=== PATIENT | female | born 1965 | race Caucasian/White ===

== ENCOUNTER 2018-04-17 22:08 | Emergency (ER) | payer MEDICARE, OTHER ==
[~2018-04-17 22:08] MED LIST: Aspirin 81 MG Tab.Chew PO ONE
[2018-04-17] MEDS: Aspirin 81 MG Tab.Chew ONE (22:25)
[2018-04-17] MEDS ORDERED: Ondansetron 4 MG/2 ML SDV IVPUSH ONE (22:51)
--- NOTE | 2018-04-17 22:52 | EDM.PDOC ---
ED HPI GENERAL MEDICAL PROBLEM - General Stated Complaint: BLOOD PRESSURE PROBLEMS Time Seen by Provider: 04/17/18 22:32 Source of Information: Reports: Patient, Significant Other History Limitations: Reports: No Limitations, Intoxication (has had several drinks all day) - History of Present Illness INITIAL COMMENTS - FREE TEXT/NARRATIVE: Patient presents (brought by boyfriend) with report of palpitations and low blood pressure. She has had palpitations for the past couple days and it usually signals that her blood pressure is too high so tonight she checked her pressure and it was low so she came in to ER. She admits she doesn't drink very much water although has had quite a bit of alcohol today. She feels the pulsations at both ends of her sternum but it is less now than earlier. She denies any other chest pain or pressure. She has a little nausea. She also has Ocular Pharyngeal Muscular Dystrophy (OPMD). Upper Chest Pain Score (Numeric/FACES): 3 - Related Data Allergies Allergy/AdvReac Type Severity Reaction Status Date / Time Unable to Assess Allergy Verified 04/17/18 23:49 ED ROS GENERAL - Review of Systems Review Of Systems: See Below Constitutional: Denies: Fever, Chills, Weakness HEENT: Denies: Throat Pain, Vision Change Respiratory: Denies: Shortness of Breath, Cough Cardiovascular: Reports: Blood Pressure Problem, Palpitations. Denies: Chest Pain, Syncope GI/Abdominal: Reports: Nausea. Denies: Abdominal Pain, Vomiting : Denies: Dysuria, Flank Pain Musculoskeletal: Denies: Neck Pain, Shoulder Pain, Arm Pain, Back Pain, Hand Pain, Leg Pain, Foot Pain Skin: Denies: Cyanosis, Jaundice, Mottled, Pallor, Diaphoresis Neurological: Denies: Confusion, Dizziness, Headache, Seizure, Syncope, Difficulty Walking, Weakness, Change in Speech Psychiatric: Denies: Agitation, Anxiety, Confusion ED EXAM, GENERAL - Physical Exam Exam: See Below Exam Limited By: No Limitations General Appearance: Alert, WD/WN, No Apparent Distress Eye Exam: Bilateral Eye: EOMI, Normal Inspection, PERRL Ears: Normal External Exam, Hearing Grossly Normal Nose: Normal Inspection, No Blood Throat/Mouth: Normal Inspection, Normal Lips, Normal Voice, No Airway Compromise Head: Atraumatic, Normocephalic Neck: Normal Inspection, Supple, Non-Tender, Full Range of Motion. No: Carotid Bruit Respiratory/Chest: No Respiratory Distress, Lungs Clear, Normal Breath Sounds, No Accessory Muscle Use Cardiovascular: Normal Peripheral Pulses, Regular Rate, Rhythm, No Edema, No Gallop, No JVD, No Murmur GI/Abdominal: Normal Bowel Sounds, Soft, No Organomegaly, No Distention, Tender (mildly tender at mid-epigastrium). No: Distended, Guarding, Rigid Back Exam: Normal Inspection, Full Range of Motion. No: CVA Tenderness (L), CVA Tenderness (R) Extremities: Normal Inspection, Normal Range of Motion, Non-Tender, No Pedal Edema Neurological: Alert, Oriented, Normal Cognition, No Motor/Sensory Deficits Psychiatric: Normal Affect, Normal Mood Skin Exam: Warm, Dry, Intact, Normal Color, No Rash Course - Vital Signs Last Recorded V/S: Last Vital Signs Temp 97.4 F 04/17/18 22:52 Pulse 74 04/17/18 22:52 Resp 21 H 04/17/18 22:52 BP 86/50 L 04/17/18 22:52 Pulse Ox 98 04/17/18 22:52 - Orders/Labs/Meds Orders: Active Orders 24 hr Category Date Time Status EKG Documentation Completion [RC] ASDIRECTED Care 04/17/18 22:51 Ordered EKG 12 Lead [EK] Routine Ther 04/17/18 22:51 Ordered Labs: Laboratory Tests 04/17/18 04/17/18 Range/Units 23:38 23:38 WBC 6.35 (5.00-10.00) 10^3/uL RBC 3.46 L (3.80-5.50) 10^6/uL Hgb 12.8 (12.0-16.0) g/dL Hct 36.3 L (37.0-47.0) % MCV 104.9 H (82.0-92.0) fL MCH 37.0 H (27.0-31.0) pg MCHC 35.3 (32.0-36.0) g/dL RDW 14.5 (11.5-14.5) % Plt Count 167 (150-400) 10^3/uL MPV 10.0 (7.4-10.4) fL Immature Gran % (Auto) 0.5 (0.0-5.0) % Neut % (Auto) 36.4 L (50.0-70.0) % Lymph % (Auto) 55.6 H (20.0-40.0) % [place] % (Auto) 5.4 (2.0-8.0) % Eos % (Auto) 1.6 (1.0-3.0) % Baso % (Auto) 0.5 (0.0-1.0) % Immature Gran # (Auto) 0.03 (0.00-0.50) 10^3/uL Neut # (Auto) 2.32 L (2.50-7.00) 10^3/uL Lymph # (Auto) 3.53 (1.00-4.00) 10^3/uL [place] # (Auto) 0.34 (0.10-0.80) 10^3/uL Eos # (Auto) 0.10 (0.10-0.30) 10^3/uL Baso # (Auto) 0.03 (0.00-0.10) 10^3/uL Sodium 140 (136-145) mmol/L Potassium 3.1 L (3.3-5.3) mmol/L Chloride 102 (98-115) mmol/L Carbon Dioxide 24.9 (21.0-32.0) mmol/L Anion Gap 16.2 H (5-15) mmol/L BUN 7 (6-25) mg/dL Creatinine 0.71 (0.51-1.17) mg/dL Est Cr Clr Drug Dosing 76.93 mL/min Estimated GFR (MDRD) > 60 mL/min Glucose 94 (75 - 99) mg/dL Calcium 8.1 L (8.7-10.3) mg/dL Total Bilirubin 0.3 (0.2-1.0) mg/dL AST 110 H (15-37) U/L ALT 152 H (12-78) U/L Alkaline Phosphatase 54 (46-116) IU/L Troponin I < 0.04 (0.00-0.070) ng/mL Total Protein 5.8 L (6.4-8.2) g/dL Albumin 3.39 (3.00-4.80) g/dL Lipase 340 (73-393) U/L Meds: Medications Discontinued Medications Generic Name Dose Route Start Last Admin Trade Name Freq PRN Reason Stop Dose Admin Aspirin Confirm 04/17/18 22:23 04/17/18 22:25 Aspirin Administered 04/17/18 22:24 324 mg Dose Administration 324 mg .ROUTE .STK-MED ONE Sodium Chloride 1,000 mls @ 999 mls/hr 04/17/18 23:46 04/17/18 22:43 Normal Saline IV 04/18/18 00:46 999 mls/hr .BOLUS ONE Administration Sodium Chloride 1,000 mls @ 999 mls/hr 04/17/18 23:47 04/17/18 23:55 Normal Saline IV 04/18/18 00:47 999 mls/hr .BOLUS ONE Administration Ondansetron HCl 4 mg 04/17/18 22:51 04/17/18 23:49 Zofran IVPUSH 04/17/18 22:52 4 mg ONETIME ONE Administration - Re-Assessments/Exams Free Text/Narrative Re-Assessment/Exam: 04/17/18 23:37 Patient is feeling a little better, less of the palpitations in upper sternum. Lab is here now drawing. 04/18/18 00:59 EKG and Troponin are okay. Liver functions a little elevated. Discussed with patient this is likely related to her alcohol use which is daily she says. She moved here 10 months ago and hasn't seen any medical providers but she has filled out paperwork for record transfer at [facility] so will follow up there for recheck. Departure - Departure Time of Disposition: 00:56 Disposition: Home, Self-Care 01 Condition: Good Clinical Impression: Dehydration Hypotension Qualifiers: Hypotension type: hypotension due to hypovolemia Qualified Code(s): I95.89 - Other hypotension; E86.1 - Hypovolemia Instructions: Hypotension, [id number], Dehydration, Adult, [id number] Referrals: PCP,Not In Area [Primary Care Provider] - Additional Instructions: 1. Drink 8 cups of water daily. 2. Cut down on alcohol intake to 1 or 2 days a week if possible. 3. Follow up with a PCP of your choice. 4. Return to ER as needed. - My Orders Last 24 Hours: My Active Orders 04/17/18 22:51 EKG Documentation Completion [RC] ASDIRECTED EKG 12 Lead [EK] Routine - Assessment/Plan Last 24 Hours: My Active Orders 04/17/18 22:51 EKG Documentation Completion [RC] ASDIRECTED EKG 12 Lead [EK] Routine
[2018-04-17] MEDS ORDERED: Sodium Chloride 0.9% 1,000 ML IV ONE ×2 (23:46→23:47)
[2018-04-18 00:23] LABS: ANION GAP 16.2 mmol/L (5-15); CHLORIDE,CL 102 mmol/L (98-115); SODIUM,NA 140 mmol/L (136-145)
[2018-04-19] MEDS: Aspirin 81 MG Tab.Chew ONE (15:47)
== END 2018-04-18 01:15 | disposition home or self-care (01) ==
LOC: KA.ED 22:08
DX: I95.89 Other hypotension (principal); E86.0 Dehydration
CPT/HCPCS: 36415; 80053; 83690; 84484; 85025; 93005; 96361; 96374; 99285; A9270; J2405; J7030; 99284

== ENCOUNTER 2018-05-26 06:27 | Observation (INO) | payer MEDICARE ==
[2018-05-26] MEDS ORDERED: Sodium Chloride 0.9% 1,000 ML IV ONE ×2 (06:46→13:46)
--- NOTE | 2018-05-26 06:48 | EDM.PDOC ---
ED HPI GENERAL MEDICAL PROBLEM - General Chief Complaint: General Stated Complaint: lightheadedness Time Seen by Provider: 05/26/18 06:30 Source of Information: Reports: Patient History Limitations: Reports: No Limitations - History of Present Illness INITIAL COMMENTS - FREE TEXT/NARRATIVE: 53 YO WF presents to ER complaining of palpitations, productive cough, and chest discomfort. Pt reports she has been having similar episodes over the last month. Pt was here for similar and had a low blood pressure at that time which responded well to a fluid bolus. Pt was seen in clinic 2 days ago and had a high blood pressure reading and was started on atenolol. Pt's current BP 112/73 but was 80s/50s when she arrived in ER. Pt denies any fever/chills. Pt with history of alcohol use/abuse. Pt also a tobacco user. Pt reports associated lightheadedness and shortness of breath. Duration: Chronic, Recurring Location: Reports: Chest Quality: Reports: Dull Improves with: Reports: None Worsens with: Reports: None Associated Symptoms: Reports: Chest Pain, cough w sputum, Nausea/Vomiting, Shortness of Breath, Weakness. Denies: Fever/Chills, Headaches, Syncope Lower Sternum Pain Score (Numeric/FACES): 8 - Related Data Allergies Allergy/AdvReac Type Severity Reaction Status Date / Time bee venom protein (honey bee) Allergy Edema Verified 05/26/18 06:44 carbamazepine [From Tegretol] Allergy Cardiac Verified 05/26/18 06:44 Arrest erythromycin base Allergy Rash Verified 05/26/18 06:44 Past Medical History Cardiovascular History: Reports: Hypertension [employer] History: Reports: Musculoskeletal History: Reports: Muscular Dystrophy Social & Family History - Caffeine Use Caffeine Use: Reports: Soda ED ROS GENERAL - Review of Systems Review Of Systems: See Below Constitutional: Reports: Malaise HEENT: Reports: No Symptoms Respiratory: Reports: Shortness of Breath, Wheezing, Cough, Sputum Cardiovascular: Reports: Chest Pain, Blood Pressure Problem, Lightheadedness Endocrine: Reports: No Symptoms GI/Abdominal: Reports: Nausea : Reports: No Symptoms Musculoskeletal: Reports: No Symptoms Skin: Reports: No Symptoms Neurological: Reports: No Symptoms Psychiatric: Reports: No Symptoms Hematologic/Lymphatic: Reports: No Symptoms Immunologic: Reports: No Symptoms ED EXAM, GENERAL - Physical Exam Exam: See Below Exam Limited By: No Limitations General Appearance: Alert, WD/WN, No Apparent Distress Nose: Normal Inspection, Normal Mucosa, No Blood Throat/Mouth: Normal Inspection, Normal Lips, Normal Teeth, Normal Gums, Normal Oropharynx, Normal Voice, No Airway Compromise Head: Atraumatic, Normocephalic Neck: Normal Inspection, Supple, Non-Tender, Full Range of Motion Respiratory/Chest: No Respiratory Distress, No Accessory Muscle Use, Wheezing Cardiovascular: Normal Peripheral Pulses, Regular Rate, Rhythm, No Edema, No Gallop, No JVD, No Murmur, No Rub GI/Abdominal: Normal Bowel Sounds, Soft, Non-Tender, No Organomegaly, No Distention, No Abnormal Bruit, No Mass Back Exam: Normal Inspection, Full Range of Motion, NT Extremities: Normal Inspection, Normal Range of Motion, Non-Tender, Normal Capillary Refill, No Pedal Edema Neurological: Alert, Oriented, CN II-XII Intact, Normal Cognition, Normal Gait, Normal Reflexes, No Motor/Sensory Deficits Psychiatric: Normal Affect, Normal Mood Skin Exam: Warm, Dry, Intact, Normal Color, No Rash Lymphatic: No Adenopathy EKG INTERPRETATION EKG Date: 05/26/18 Time: 07:21 Rhythm: NSR Rate (Beats/Min): 67 [place]: Normal P-Wave: Present QRS: Normal ST-T: Normal QT: Normal Course - Vital Signs Last Recorded V/S: Last Vital Signs Temp 36.3 C 05/26/18 06:30 Pulse Resp 15 05/26/18 06:30 BP 89/51 L 05/26/18 06:30 Pulse Ox 99 05/26/18 06:30 - Orders/Labs/Meds Orders: Active Orders 24 hr Category Date Time Status EKG Documentation Completion [RC] ASDIRECTED Care 05/26/18 06:46 Active Orthostatic Vital Signs [RC] ASDIRECTED Care 05/26/18 06:56 Ordered RT Aerosol Therapy [RC] ASDIRECTED Care 05/26/18 06:56 Ordered Chest 2V [CR] Stat Exams 05/26/18 06:46 Ordered DRUG SCREEN, URINE [URCHEM] Stat Lab 05/26/18 06:46 Ordered LACTIC ACID [CHEM] Stat Lab 05/26/18 06:47 Ordered URINALYSIS W/MICROSCOPIC [UA W/MICROSCOPIC] [URIN] Stat Lab 05/26/18 06:47 Ordered Sodium Chloride 0.9% [Normal Saline] 1,000 ml Med 05/26/18 06:46 Active IV .BOLUS EKG 12 Lead [EK] Routine Ther 05/26/18 06:46 Ordered Medication Orders Sodium Chloride (Normal Saline) 1,000 mls @ 999 mls/hr IV .BOLUS ONE Stop: 05/26/18 07:46 Last Admin: 05/26/18 07:22 Dose: 999 mls/hr Labs: Laboratory Tests 05/26/18 05/26/18 Range/Units 06:30 06:30 WBC 7.36 (5.00-10.00) 10^3/uL RBC 3.80 (3.80-5.50) 10^6/uL Hgb 14.3 D (12.0-16.0) g/dL Hct 40.0 (37.0-47.0) % MCV 105.3 H (82.0-92.0) fL MCH 37.6 H (27.0-31.0) pg MCHC 35.8 (32.0-36.0) g/dL RDW 13.0 (11.5-14.5) % Plt Count 189 (150-400) 10^3/uL MPV 10.5 H (7.4-10.4) fL Immature Gran % (Auto) 0.5 (0.0-5.0) % Neut % (Auto) 39.9 L (50.0-70.0) % Lymph % (Auto) 50.7 H (20.0-40.0) % [place] % (Auto) 6.8 (2.0-8.0) % Eos % (Auto) 1.6 (1.0-3.0) % Baso % (Auto) 0.5 (0.0-1.0) % Immature Gran # (Auto) 0.04 (0.00-0.50) 10^3/uL Neut # (Auto) 2.93 (2.50-7.00) 10^3/uL Lymph # (Auto) 3.73 (1.00-4.00) 10^3/uL [place] # (Auto) 0.50 (0.10-0.80) 10^3/uL Eos # (Auto) 0.12 (0.10-0.30) 10^3/uL Baso # (Auto) 0.04 (0.00-0.10) 10^3/uL Sodium 143 (136-145) mmol/L Potassium 3.8 (3.3-5.3) mmol/L Chloride 101 (98-115) mmol/L Carbon Dioxide 22.1 (21.0-32.0) mmol/L Anion Gap 23.7 H (5-15) mmol/L BUN 8 (6-25) mg/dL Creatinine 0.65 (0.51-1.17) mg/dL Est Cr Clr Drug Dosing 84.03 mL/min Estimated GFR (MDRD) > 60 mL/min Glucose 88 (75 - 99) mg/dL Calcium 8.8 (8.7-10.3) mg/dL Total Bilirubin 0.2 (0.2-1.0) mg/dL AST 142 H (15-37) U/L ALT 147 H (12-78) U/L Alkaline Phosphatase 70 (46-116) IU/L Creatine Kinase 87 (26-276) U/L CK-MB (CK-2) 3.10 (0.00-4.30) ng/mL Troponin I 0.08 H* (0.00-0.070) ng/mL Total Protein 6.8 (6.4-8.2) g/dL Albumin 3.98 (3.00-4.80) g/dL Lipase 288 (73-393) U/L Ethyl Alcohol 197 H* (NONE DETECTED) mg/dL Meds: Medications Generic Name Dose Route Start Last Admin Trade Name Freq PRN Reason Stop Dose Admin Sodium Chloride 1,000 mls @ 999 mls/hr 05/26/18 06:46 05/26/18 07:22 Normal Saline IV 05/26/18 07:46 999 mls/hr .BOLUS ONE Administration Discontinued Medications Generic Name Dose Route Start Last Admin Trade Name Freq PRN Reason Stop Dose Admin Albuterol/Ipratropium 3 ml 05/26/18 06:56 05/26/18 07:23 Duoneb 3.0-0.5 Mg/3 Ml NEB 05/26/18 06:57 3 ml ONETIME ONE Administration Ondansetron HCl 4 mg 05/26/18 06:56 05/26/18 07:23 Zofran IVPUSH 05/26/18 06:57 4 mg ONETIME ONE Administration - Radiology Interpretation Free Text/Narrative:: CXR-NAD Departure - Departure Time of Disposition: 07:42 Disposition: Refer to Observation Condition: Fair Clinical Impression: Labile blood pressure Chest pain Qualifiers: Chest pain type: unspecified Qualified Code(s): R07.9 - Chest pain, unspecified - Discharge Information Forms: ED Department Discharge - My Orders Last 24 Hours: My Active Orders 05/26/18 06:46 EKG Documentation Completion [RC] ASDIRECTED Chest 2V [CR] Stat DRUG SCREEN, URINE [URCHEM] Stat Sodium Chloride 0.9% [Normal Saline] 1,000 ml IV .BOLUS EKG 12 Lead [EK] Routine 05/26/18 06:47 LACTIC ACID [CHEM] Stat URINALYSIS W/MICROSCOPIC [UA W/MICROSCOPIC] [URIN] Stat 05/26/18 06:56 Orthostatic Vital Signs [RC] ASDIRECTED RT Aerosol Therapy [RC] ASDIRECTED - Assessment/Plan Last 24 Hours: My Active Orders 05/26/18 06:46 EKG Documentation Completion [RC] ASDIRECTED Chest 2V [CR] Stat DRUG SCREEN, URINE [URCHEM] Stat Sodium Chloride 0.9% [Normal Saline] 1,000 ml IV .BOLUS EKG 12 Lead [EK] Routine 05/26/18 06:47 LACTIC ACID [CHEM] Stat URINALYSIS W/MICROSCOPIC [UA W/MICROSCOPIC] [URIN] Stat 05/26/18 06:56 Orthostatic Vital Signs [RC] ASDIRECTED RT Aerosol Therapy [RC] ASDIRECTED Assessment:: 1. Chest pain 2. equivocal trop I 3. labile blood pressure 4. ETOH use/abuse Plan: 1. Admit to medicine- Ladarius SCHROEDER 2. Trop I Q6 3. supportive care 4. ASA 325mg PO QD 5. hold nitro for now due to labile blood pressure
[2018-05-26] MEDS ORDERED: Albuterol/Ipratropium 3.0-0.5 MG/3 ML Neb Soln NEB ONE (06:56)
[2018-05-26] MEDS ORDERED: Ondansetron 4 MG/2 ML SDV IVPUSH ONE (06:56)
[2018-05-26 07:18] LABS: ANION GAP 23.7 mmol/L (5-15); CHLORIDE,CL 101 mmol/L (98-115); SODIUM,NA 143 mmol/L (136-145)
[2018-05-26] MEDS ORDERED: Aspirin 81 MG Tab.Chew PO ONE (07:36)
[2018-05-26] MEDS ORDERED: Ondansetron 4 MG/2 ML SDV IV PRN (07:39)
[2018-05-26] MEDS ORDERED: Albuterol/Ipratropium 3.0-0.5 MG/3 ML Neb Soln NEB PRN (07:39)
[2018-05-26] MEDS ORDERED: Sodium Chloride 0.9% 10 ML Syringe FLUSH PRN ×2 (07:39→12:02)
--- NOTE | 2018-05-26 07:57 | CR ---
[id number] RAD/RAD Chest PA And Lateral EXAM: FRONTAL AND LATERAL CHEST INDICATION: Cough. COMPARISON: None. DISCUSSION: Mild elevation of the left hemidiaphragm. No acute infiltrates are identified. Normal heart size. IMPRESSION: 1. Negative for acute infiltrates. Mateusz Slulivan MD 05/26/18 0756 Thank you for allowing us to participate in the care of your patient.
[2018-05-26] MEDS ORDERED: Lidocaine 2% 100 MG/5 ML Syringe IVPUSH PRN (10:14)
[2018-05-26] MEDS ORDERED: Nitroglycerin 0.4 MG Tab.SL SL PRN (10:14)
[2018-05-26] MEDS ORDERED: EPINEPHrine 1:10,000 1 MG/10 ML Syringe IVPUSH PRN (10:14)
[2018-05-26] MEDS ORDERED: Atropine 0.1 MG/ML 10 ML Syringe IVPUSH PRN (10:14)
--- NOTE | 2018-05-26 12:01 | PCM.HP ---
H&P History of Present Illness - General Date of Service: 05/26/18 Admit Problem/Dx: Admission Diagnosis/Problem Admission Diagnosis/Problem Chest pain Source of Information: Patient, Old Records, Provider, RN History Limitations: Reports: Altered Mental Status (Slightly AMT due to EtOH intoxication) - History of Present Illness Initial Comments - Free Text/Narative: Elizabeth is a 53 -year-old female that was admitted into observation when she came into the ED complaining of chest palpitations and chest pain some lightheadedness and shortness of breath with a productive cough. Pt reports she has been having similar episodes over the last month. Pt is interested to the ED April 17 due to palpitations and low blood pressure recorded 80/50 at that time. She was treated with IV fluid boluses and released and was instructed to increase in her oral intake of water and follow-up with her PCP. She was evaluated in the [place] [facility] on May 24 due to hypertension and at that time she was complaining of throbbing in her throat along with epigastric regional type pain. She was started back on her atenolol as her blood pressure was 148/106. Patient does have a long history of alcohol abuse and at one point was in treatment for 16 years however over the past 3-5 years due to the family members dying she has started drinking again approximately 6 alcoholic drinks/day most days of the week. She is a heavy smoker Lower Sternum Pain Score (Numeric/FACES): 8 - Related Data Allergies/Adverse Reactions: Allergies Allergy/AdvReac Type Severity Reaction Status Date / Time bee venom protein (honey bee) Allergy Edema Verified 05/26/18 06:44 carbamazepine [From Tegretol] Allergy Cardiac Verified 05/26/18 06:44 Arrest erythromycin base Allergy Rash Verified 05/26/18 06:44 Home Medications: Home Meds Acetaminophen [Tylenol] 650 mg PO Q6H PRN 05/26/18 [History] Albuterol [Ventolin HFA] 1 puff INH Q4HR PRN 05/26/18 [History] Atenolol 50 mg PO DAILY 05/26/18 [History] Calcium Carbonate [Tums] 1 tab PO DAILY PRN 05/26/18 [History] Ondansetron [Zofran ODT] 4 mg PO Q4HR PRN 05/26/18 [History] SUMAtriptan Succinate [Imitrex] 100 mg PO Q2HR PRN 05/26/18 [History] diphenhydrAMINE [Benadryl] 25 mg PO BEDTIME PRN 05/26/18 [History] traMADol [Ultram] 2 tab PO BID PRN 05/26/18 [History] Alum Hydrox/Mag Hydrox/Simeth [Mag-Al Plus] 30 ml PO Q8H PRN #20 cup 05/27/18 [ Rx] Nicotine [Habitrol] 21 mg TRDERM DAILY #42 patch 05/27/18 [Rx] Omeprazole 20 mg PO DAILY #30 tab. 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 History: Reports: Musculoskeletal History: Reports: Fibromyalgia, Muscular Dystrophy Neurological History: Reports: Migraines, Neuropathy, Peripheral, Seizure Psychiatric History: Reports: Addiction, Anxiety, Depression Endocrine/Metabolic History: Reports: Osteopenia Hematologic History: Reports: Other (See Below) Other Hematologic History: Factor V deficiency Immunologic History: Reports: None Oncologic (Cancer) History: Reports: None Dermatologic History: Reports: None - Past Surgical History HEENT Surgical History: Reports: None Female Surgical History: Reports: Kidney stone extraction Dermatological Surgical History: Reports: None Social & Family History - Family History HEENT: Reports: None Cardiac: Reports: None Respiratory: Reports: Asthma GI: Reports: None : Reports: None OBGYN: Reports: None Musculoskeletal: Reports: None Neurological: Reports: None Psychiatric: Reports: Depression Endocrine/Metabolic: Reports: Diabetes, type II Hematologic: Reports: None Immunologic: Reports: None - Tobacco Use Smoking Status *Q: Current Every Day Smoker Years of Tobacco use: 43 Packs/Tins Daily: 1 - Caffeine Use Caffeine Use: Reports: Coffee, Soda - Alcohol Use Days Per Week of Alcohol Use: 5 Number of Drinks Per Day: 3 Total Drinks Per Week: 15 - Recreational Drug Use Recreational Drug Use: Yes Recreational Drug Type: Reports: Cocaine H&P Review of Systems - Review of Systems: Review Of Systems: See Below General: Reports: Malaise HEENT: Reports: No Symptoms Pulmonary: Reports: Cough, Sputum Cardiovascular: Reports: Chest Pain (Epigastric pain). Denies: Orthopnea, PND, Edema Gastrointestinal: Reports: Abdominal Pain (Pain epigastric nonradiating). Denies: Constipation, Diarrhea, Difficulty Swallowing, Nausea Genitourinary: Reports: No Symptoms Musculoskeletal: Reports: No Symptoms Skin: Reports: Dryness Psychiatric: Denies: Agitation Neurological: Denies: Confusion Hematologic/Lymphatic: Reports: No Symptoms Immunologic: Reports: No Symptoms Exam - Exam Exam: See Below - Vital Signs Vital Signs: Last Vital Signs Temp 99 F 05/26/18 11:00 Pulse 81 05/26/18 11:00 Resp 18 05/26/18 11:00 BP 91/58 L 05/26/18 11:00 Pulse Ox 95 05/26/18 11:00 Orthostatic Blood Pressure [ 92/62 Standing] Orthostatic Blood Pressure [ 81/57 Sitting] Orthostatic Blood Pressure [ 82/65 Supine] Weight: 122 lb 9.6 oz - Exam General: Alert, Oriented, Cooperative. No: Mild Distress HEENT: Hearing Intact, Pupils Reactive. No: Mucosa Moist & [place] Neck: Supple Lungs: Rhonchi. No: Rales Cardiovascular: Regular Rate, Regular Rhythm GI/Abdominal Exam: Soft, Non-Tender. No: No Distention, Distended, Guarding, Rigid, Rebound, Tender, Mass (Female) Exam: Deferred Rectal (Female) Exam: Deferred Back Exam: No: CVA Tenderness (L), CVA Tenderness (R) Extremities: No Pedal Edema Peripheral Pulses: 2+: Radial (L), Radial (R) Skin: Dry. No: Rash Neurological: Normal Speech, Sensation Intact, Other (Due to multiple dystrophy drop foot bilaterally) Neuro Extensive - Motor, Sensory, Reflexes: CN II-XII Intact. No: Normal Gait Psychiatric: Alert, Normal Affect, Normal Mood. No: Agitated, Hallucinations, Withdrawal Symptoms - Patient Data Lab Results Last 24 hrs: Laboratory Results - last 24 hr 05/26/18 05/26/18 05/26/18 Range/Units 06:30 06:30 06:30 WBC 7.36 (5.00-10.00) 10^3/uL RBC 3.80 (3.80-5.50) 10^6/uL Hgb 14.3 D (12.0-16.0) g/dL Hct 40.0 (37.0-47.0) % MCV 105.3 H (82.0-92.0) fL MCH 37.6 H (27.0-31.0) pg MCHC 35.8 (32.0-36.0) g/dL RDW 13.0 (11.5-14.5) % Plt Count 189 (150-400) 10^3/uL MPV 10.5 H (7.4-10.4) fL Immature Gran % (Auto) 0.5 (0.0-5.0) % Neut % (Auto) 39.9 L (50.0-70.0) % Lymph % (Auto) 50.7 H (20.0-40.0) % [place] % (Auto) 6.8 (2.0-8.0) % Eos % (Auto) 1.6 (1.0-3.0) % Baso % (Auto) 0.5 (0.0-1.0) % Immature Gran # (Auto) 0.04 (0.00-0.50) 10^3/uL Neut # (Auto) 2.93 (2.50-7.00) 10^3/uL Lymph # (Auto) 3.73 (1.00-4.00) 10^3/uL [place] # (Auto) 0.50 (0.10-0.80) 10^3/uL Eos # (Auto) 0.12 (0.10-0.30) 10^3/uL Baso # (Auto) 0.04 (0.00-0.10) 10^3/uL Sodium 143 (136-145) mmol/L Potassium 3.8 (3.3-5.3) mmol/L Chloride 101 (98-115) mmol/L Carbon Dioxide 22.1 (21.0-32.0) mmol/L Anion Gap 23.7 H (5-15) mmol/L BUN 8 (6-25) mg/dL Creatinine 0.65 (0.51-1.17) mg/dL Est Cr Clr Drug Dosing 84.03 mL/min Estimated GFR (MDRD) > 60 mL/min Glucose 88 (75 - 99) mg/dL Lactic Acid 2.9 H (0.4-2.0) mmol/L Calcium 8.8 (8.7-10.3) mg/dL Total Bilirubin 0.2 (0.2-1.0) mg/dL AST 142 H (15-37) U/L ALT 147 H (12-78) U/L Alkaline Phosphatase 70 (46-116) IU/L Creatine Kinase 87 (26-276) U/L CK-MB (CK-2) 3.10 (0.00-4.30) ng/mL Troponin I 0.08 H* (0.00-0.070) ng/mL Total Protein 6.8 (6.4-8.2) g/dL Albumin 3.98 (3.00-4.80) g/dL Lipase 288 (73-393) U/L Specimen Type Urine Color (YELLOW) Urine Appearance (CLEAR) Urine pH (5.0-9.0) Ur Specific [place] (1.005-1.030) Urine Protein (NEGATIVE) mg/dL Urine Glucose (UA) (NEGATIVE) mg/dL Urine Ketones (NEGATIVE) mg/dL Urine Occult Blood (NEGATIVE) Urine Nitrite (NEGATIVE) Urine Bilirubin (NEGATIVE) Urine Urobilinogen (0.2-1.0) E.U./dL Ur Leukocyte Esterase (NEGATIVE) Urine RBC (0-5) /HPF Urine WBC (0-5) /HPF Ur Epithelial Cells /LPF Urine Bacteria (NONE TO FEW) /HPF Urine Opiates Screen (NEGATIVE) Ur Oxycodone Screen (NEGATIVE) Urine Methadone Screen (NEGATIVE) Ur Propoxyphene Screen (NEGATIVE) Ur Barbiturates Screen (NEGATIVE) Ur Tricyclics Screen (NEGATIVE) Ur Phencyclidine Scrn (NEGATIVE) Ur Amphetamine Screen (NEGATIVE) U Methamphetamines Scrn (NEGATIVE) U Benzodiazepines Scrn (NEGATIVE) U Cocaine Metab Screen (NEGATIVE) U Marijuana (THC) Screen (NEGATIVE) Ethyl Alcohol 197 H* (NONE DETECTED) mg/dL 05/26/18 05/26/18 Range/Units 10:05 10:05 WBC (5.00-10.00) 10^3/uL RBC (3.80-5.50) 10^6/uL Hgb (12.0-16.0) g/dL Hct (37.0-47.0) % MCV (82.0-92.0) fL MCH (27.0-31.0) pg MCHC (32.0-36.0) g/dL RDW (11.5-14.5) % Plt Count (150-400) 10^3/uL MPV (7.4-10.4) fL Immature Gran % (Auto) (0.0-5.0) % Neut % (Auto) (50.0-70.0) % Lymph % (Auto) (20.0-40.0) % [place] % (Auto) (2.0-8.0) % Eos % (Auto) (1.0-3.0) % Baso % (Auto) (0.0-1.0) % Immature Gran # (Auto) (0.00-0.50) 10^3/uL Neut # (Auto) (2.50-7.00) 10^3/uL Lymph # (Auto) (1.00-4.00) 10^3/uL [place] # (Auto) (0.10-0.80) 10^3/uL Eos # (Auto) (0.10-0.30) 10^3/uL Baso # (Auto) (0.00-0.10) 10^3/uL Sodium (136-145) mmol/L Potassium (3.3-5.3) mmol/L Chloride (98-115) mmol/L Carbon Dioxide (21.0-32.0) mmol/L Anion Gap (5-15) mmol/L BUN (6-25) mg/dL Creatinine (0.51-1.17) mg/dL Est Cr Clr Drug Dosing mL/min Estimated GFR (MDRD) mL/min Glucose (75 - 99) mg/dL Lactic Acid (0.4-2.0) mmol/L Calcium (8.7-10.3) mg/dL Total Bilirubin (0.2-1.0) mg/dL AST (15-37) U/L ALT (12-78) U/L Alkaline Phosphatase (46-116) IU/L Creatine Kinase (26-276) U/L CK-MB (CK-2) (0.00-4.30) ng/mL Troponin I (0.00-0.070) ng/mL Total Protein (6.4-8.2) g/dL Albumin (3.00-4.80) g/dL Lipase (73-393) U/L Specimen Type Urinvoid Urine Color Yellow (YELLOW) Urine Appearance Clear (CLEAR) Urine pH 6.0 (5.0-9.0) Ur Specific [place] 1.010 (1.005-1.030) Urine Protein Negative (NEGATIVE) mg/dL Urine Glucose (UA) Negative (NEGATIVE) mg/dL Urine Ketones Negative (NEGATIVE) mg/dL Urine Occult Blood Negative (NEGATIVE) Urine Nitrite Negative (NEGATIVE) Urine Bilirubin Negative (NEGATIVE) Urine Urobilinogen 0.2 (0.2-1.0) E.U./dL Ur Leukocyte Esterase Negative (NEGATIVE) Urine RBC 0-5 (0-5) /HPF Urine WBC 0-5 (0-5) /HPF Ur Epithelial Cells Many H /LPF Urine Bacteria Occasional (NONE TO FEW) /HPF Urine Opiates Screen Negative (NEGATIVE) Ur Oxycodone Screen Negative (NEGATIVE) Urine Methadone Screen Negative (NEGATIVE) Ur Propoxyphene Screen Negative (NEGATIVE) Ur Barbiturates Screen Negative (NEGATIVE) Ur Tricyclics Screen Negative (NEGATIVE) Ur Phencyclidine Scrn Negative (NEGATIVE) Ur Amphetamine Screen Negative (NEGATIVE) U Methamphetamines Scrn Negative (NEGATIVE) U Benzodiazepines Scrn Negative (NEGATIVE) U Cocaine Metab Screen Negative (NEGATIVE) U Marijuana (THC) Screen Negative (NEGATIVE) Ethyl Alcohol (NONE DETECTED) mg/dL Result Diagrams: 05/26/18 06:30 05/26/18 06:30 Problem List Initiated/Reviewed/Updated: Yes Orders Last 24hrs: Active Orders 24 hr Category Date Time Status Patient Status [ADT] Routine ADT 05/26/18 07:39 Ordered Orthostatic Vital Signs [RC] ASDIRECTED Care 05/26/18 06:56 Active Oxygen Therapy [RC] PRN Care 05/26/18 07:39 Active RT Aerosol Therapy [RC] ASDIRECTED Care 05/26/18 07:41 Active Up With Assistance [RC] ASDIRECTED Care 05/26/18 07:39 Active VTE/DVT Education [RC] PER UNIT ROUTINE Care 05/26/18 07:39 Active Vital Signs [RC] 0300,0700,1100,1500,1900,2300 Care 05/26/18 07:39 Active 2 Gram Sodium Diet [DIET] Diet 05/26/18 Breakfast Active CULTURE SPUTUM + SMEAR [RM] Stat Lab 05/26/18 07:39 Ordered TROPONIN I [CHEM] Routine Lab 05/26/18 12:30 Ordered TROPONIN I [CHEM] Timed Lab 05/26/18 18:30 Ordered Albuterol/Ipratropium [DuoNeb 3.0-0.5 MG/3 ML] Med 05/26/18 07:39 Active 3 ml NEB Q4H PRN Atropine [Atropine 0.1 MG/ML] Med 05/26/18 10:14 Active 0 mg IVPUSH ASDIRECTED PRN EPINEPHrine [EPINEPHrine 1:10,000] Med 05/26/18 10:14 Active 1 mg IVPUSH ASDIRECTED PRN Lidocaine 2% [Xylocaine 2%] Med 05/26/18 10:14 Active 0 mg IVPUSH ASDIRECTED PRN Nitroglycerin [Nitrostat] Med 05/26/18 10:14 Active 0.4 mg SL ASDIRECTED PRN Ondansetron [Zofran] Med 05/26/18 07:39 Active 4 mg IV Q6H PRN Sodium Chloride 0.9% [Saline Flush] Med 05/26/18 07:39 Active 10 ml FLUSH Q8HR PRN Peripheral IV Insertion Adult [OM.PC] Routine Oth 05/26/18 07:39 Ordered Resuscitation Status Routine Resus Stat 05/26/18 07:39 Ordered EKG 12 Lead [EK] Routine Ther 05/26/18 06:46 Stop Req Medication Orders Albuterol/Ipratropium (Duoneb 3.0-0.5 Mg/3 Ml) 3 ml NEB Q4H PRN PRN Reason: Shortness Of Breath/wheezing Atropine Sulfate (Atropine 0.1 Mg/Ml) 0 mg IVPUSH ASDIRECTED PRN PRN Reason: Heart Epinephrine HCl (Epinephrine 1:10,000) 1 mg IVPUSH ASDIRECTED PRN PRN Reason: Heart Lidocaine HCl (Xylocaine 2%) 0 mg IVPUSH ASDIRECTED PRN PRN Reason: Heart Nitroglycerin (Nitrostat) 0.4 mg SL ASDIRECTED PRN PRN Reason: Heart Ondansetron HCl (Zofran) 4 mg IV Q6H PRN PRN Reason: Nausea/Vomiting Sodium Chloride (Saline Flush) 10 ml FLUSH Q8HR PRN PRN Reason: keep vein open Assessment/Plan Comment:: History of present illness Elizabeth is a 53 -year-old female that was admitted into observation when she came into the ED complaining of chest palpitations and chest pain some lightheadedness and shortness of breath with a productive cough. Pt reports she has been having similar episodes over the last month. Pt is interested to the ED April 17 due to palpitations and low blood pressure recorded 80/50 at that time. She was treated with IV fluid boluses and released and was instructed to increase in her oral intake of water and follow-up with her PCP. She was evaluated in the [facility] on May 24 due to hypertension and at that time she was complaining of throbbing in her throat along with epigastric regional type pain. She was started back on her atenolol as her blood pressure was 148/106. Patient does have a long history of alcohol abuse and at one point was in treatment for 16 years however over the past 3-5 years due to the family members dying she has started drinking again approximately 6 alcoholic drinks/day most days of the week. She is a heavy smoker ED course Arrival in the ED BP 80s/50's EtOH level 947 Primary Hospital problems Rule out ACS, serial troponins, CK-MB normal, EtOH abuse, EtOH level 997, add thiamine, social service consultation for treatment, monitor for withdrawal's Hypotension with labile blood pressures, hold labetalol, IV fluids now. Elevated aminotransferases, AST/ALT ratio <1, possibly due to EtOH abuse, will need liver US Tobacco dependency, 63 pk/year current smoker, nicotine replacement therapy Secondary problems Ocular Pharyngeal Muscular Dystrophy (OPMD), left-sided residual facial paralysis Overall plan today, admit to observation status, rule out ACS with serial EKGs/ troponin, Assess urine drug screen, thyroid, hepatitis panel, ammonia level, right upper quadrant abdominal US, repeat lactic acid after IV fluid bolus, blood cultures, GI cocktail x 1, PPI therapy, thiamine, nicotine replacement, social worker palliative care consult.
[2018-05-26] MEDS ORDERED: Ondansetron 4 MG Tab.DIS PO PRN ×2 (12:02→13:34)
[2018-05-26] MEDS: Nicotine 21 MG/24 Hr Patch TRDERM SCH (12:20)
[2018-05-26] MEDS: Thiamine 200 MG/2 ML MDV IM SCH (13:17)
[2018-05-26] MEDS ORDERED: Calcium Carbonate 500 MG Tab.Chew PO PRN (13:34)
[2018-05-26] MEDS ORDERED: diphenhydrAMINE 25 MG Cap PO PRN (13:34)
[2018-05-26] MEDS ORDERED: GI Cocktail 45 ML BOTTLE PO ONE (13:35)
[2018-05-26] MEDS: Sodium Chloride 0.9% 1,000 ML IV SCH ×2 (15:08→23:42)
[2018-05-26] MEDS: Omeprazole 20 MG Cap.CR PO SCH (17:26)
[2018-05-26] MEDS ORDERED: TAZOBACTAM IV SCH ×2 (17:30→18:00)
[2018-05-26] MEDS ORDERED: DEXT IV SCH ×2 (17:30→18:00)
[2018-05-26] MEDS ORDERED: SODIUM CHLORIDE 0.9% IV SCH ×2 (17:30→18:00)
[2018-05-26] MEDS ORDERED: PIPERACILLIN IV SCH ×2 (17:30→18:00)
[2018-05-26] MEDS ORDERED: Piperacillin/Tazobactam/Dext 3.375 GM in Premix Bag 1 BAG IV SCH (18:30)
[2018-05-27] MEDS: Omeprazole 20 MG Cap.CR PO SCH (07:37)
[2018-05-27] MEDS ORDERED: Aluminum Hydroxide/Magnesium Hydroxide/Simethicone Susp 30 ML Cup PO PRN (07:38)
[2018-05-27] MEDS: Nicotine 21 MG/24 Hr Patch TRDERM SCH (08:19)
[2018-05-27] MEDS: Thiamine 200 MG/2 ML MDV IM SCH (09:29)
[2018-05-27] MEDS ORDERED: Atenolol 25 MG Tab PO SCH (10:00)
--- NOTE | 2018-05-27 10:28 | PCM.DCSUM1 ---
Discharge Summary - Hospital Course Diagnosis: Stroke: No - Discharge Data Discharge Date: 05/27/18 Discharge Disposition: Home, Self-Care 01 Condition: Good - Patient Summary/Data Consults: Consultations 05/26/18 13:36 Consult to Case Management/Press Hand Supervisor [CONS] Routine - Patient Instructions Diet: Regular Diet as Tolerated, Drink 8-10+ Glasses/Day Activity: As Tolerated, Cough & Deep Breathe Driving: Do Not Drive Notify Provider of: Fever, Nausea and/or Vomiting Other/Special Instructions: BP check with home calibratin [facility] this afternoon at 4:30. Repeat blood pressure check [facility] tomorrow anytime. Keep regular scheduled appointment with Dr. Declan hidalgo Thursday. Very important to stay well-hydrated with water. Try to limit or slowly decrease alcohol intake. - Discharge Plan *PRESCRIPTION DRUG MONITORING PROGRAM REVIEWED*: Yes (Current tramadol prescription 1 provider) *COPY OF PRESCRIPTION DRUG MONITORING REPORT IN PATIENT CHHAYA: No Prescriptions/Med Rec: Alum Hydrox/Mag Hydrox/Simeth [Mag-Al Plus] 30 ml PO Q8H PRN #20 cup PRN Reason: Heartburn Nicotine [Habitrol] 21 mg TRDERM DAILY #42 patch Omeprazole 20 mg PO DAILY #30 tab.rap. Home Medications: Home Meds Acetaminophen [Tylenol] 650 mg PO Q6H PRN 05/26/18 [History] Albuterol [Ventolin HFA] 1 puff INH Q4HR PRN 05/26/18 [History] Atenolol 50 mg PO DAILY 05/26/18 [History] Calcium Carbonate [Tums] 1 tab PO DAILY PRN 05/26/18 [History] Ondansetron [Zofran ODT] 4 mg PO Q4HR PRN 05/26/18 [History] SUMAtriptan Succinate [Imitrex] 100 mg PO Q2HR PRN 05/26/18 [History] diphenhydrAMINE [Benadryl] 25 mg PO BEDTIME PRN 05/26/18 [History] traMADol [Ultram] 2 tab PO BID PRN 05/26/18 [History] Alum Hydrox/Mag Hydrox/Simeth [Mag-Al Plus] 30 ml PO Q8H PRN #20 cup 05/27/18 [ Rx] Nicotine [Habitrol] 21 mg TRDERM DAILY #42 patch 05/27/18 [Rx] Omeprazole 20 mg PO DAILY #30 tab 05/27/18 [Rx] Referrals: PCP,Not In Area [Primary Care Provider] - - Discharge Summary/Plan Comment DC Time >30 min.: Yes Discharge Summary/Plan Comment: Final diagnosis ACS ruled out Dyspepsia/Acid reflux EtOH abuse, Bronchitis, likely viral Hypotension with labile blood pressures Hypertension, improved however not optimal Elevated aminotransferases Tobacco dependency, 63 pk/year current smoker Ocular Pharyngeal Muscular Dystrophy (OPMD), left-sided residual facial paralysis History summary Elizabeth is a 53 -year-old female that was admitted into observation when she came into the ED complaining of chest palpitations and chest pain some lightheadedness and shortness of breath with a productive cough. Pt reported she has been having similar episodes over the last month. Pt is evaluated in the ED April 17 due to palpitations and low blood pressure which her blood pressures were recorded 80/50 at that time. She was treated with IV fluid boluses and released and was instructed to increase in her oral intake of water and follow-up with her PCP. She was evaluated in the [place] clinic on May 24 due to hypertension and at that time she was complaining of throbbing in her throat along with epigastric regional type pain. She was started back on her atenolol as her blood pressure was 148/106. Patient does have a long history of alcohol abuse and at one point was in treatment for 16 years however over the past 3-5 years due to the family members dying she has started drinking again approximately 6 alcoholic drinks/day most days of the week. She is a heavy smoker 63 pk/year current smoker, nicotine replacement therapy ED course Arrival in the ED BP 80s/50's EtOH level 947 Troponin 0.08 ECG normal CXR; negative for infiltrates Hospital course Quite uneventful. He remained on telemetry with no ectopy she remained in normal sinus rhythm. He did have a slight initial elevation of troponin 0.08 however quickly trended down to normal. ECG was normal. Lactic acid in the ED slightly elevated at 2.9 however she was significantly hypotensive and dehydrated and upon aggressive fluid boluses in the ED and upon admission this was repeated and it quickly normalized. No evidence of active ongoing infection however on-call provider did order broad-spectrum antibiotics. Her white count on admission was 7.3, neutrophilia percentage is 39%. Urine toxicology normal, alcohol on admission 197. She was treated with thiamine fluid resuscitation, urine was normal. She did have elevated aminotransferases, AST/ALT ratio <1, thought possibly due to EtOH abuse, abdominal ultrasound was ordered however not available at current hospital. Continue replacement therapy was started at 21 mg. She is in determination phage of smoking cessation. student services advisor consultation visit with patient for possible EtOH counseling she refused at this time. They'll all was held on admission. Her blood pressure did increase and this was restarted back on discharge. Aspirin was discontinued. She was given Maalox GI cocktail in which she stated her pain immediately resolved. She had no alcohol withdrawal symptoms. Blood pressures were quite low upon admission however they did improve with fluid resuscitation and holding of her atenolol however upon hydration they did start elevating. BP readings day of discharge 130/92 157/96 126/96 Medication changes/adjustments upon discharge Maalox, as directed. Newly added Omeprazole 20 mg by mouth twice a day 30 days. Newly added Habitrol/nicotine 21 mg transdermal daily 40 days then titrate down accordingly Discontinue aspirin Atenolol 50 mg by mouth daily restarted upon discharge Dispositon, she will be discharged from the hospital, follow-up with PCP on Thursday. Blood pressure checks this afternoon and Thursday [place] [facility]. Bring home BP monitor in for calibration. Reconmendations upon follow-up repeat LFTs, RUQ ultrasound, ongoing counseling regarding EtOH, tobacco abuse. Possible candidate for naltrexone, - General Info Functional Status: Reports: Pain Controlled, Tolerating Diet, Ambulating, Urinating. Denies: New Symptoms - Review of Systems General: Denies: Fever, Weakness HEENT: Reports: No Symptoms Pulmonary: Reports: No Symptoms Cardiovascular: Reports: Other (Very mild epigastric pain however much improved with Maalox) Gastrointestinal: Denies: Diarrhea, Nausea Genitourinary: Reports: No Symptoms Skin: Denies: Dryness Neurological: Reports: Pre-Existing Deficit. Denies: Confusion Psychiatric: Denies: Agitation, Cravings - Patient Data Vitals - Most Recent: Last Vital Signs Temp 98.1 F 05/27/18 06:53 Pulse 62 05/27/18 06:53 Resp 18 05/27/18 06:53 BP 157/96 H 05/27/18 06:53 Pulse Ox 97 05/27/18 09:45 Orthostatic Blood Pressure [ 92/62 Standing] Orthostatic Blood Pressure [ 81/57 Sitting] Orthostatic Blood Pressure [ 82/65 Supine] Weight - Most Recent: 130 lb I&O - Last 24 hours: Intake & Output 05/26/18 05/27/18 05/27/18 22:59 06:59 14:59 Intake Total 2021 1088 Output Total 1250 700 Balance 771 388 Lab Results - Last 24 hrs: Laboratory Results - last 24 hr 05/26/18 05/26/18 05/26/18 Range/Units 10:05 10:05 12:30 PT (8.9-11.4) SEC INR (0.9-1.1) Lactic Acid (0.4-2.0) mmol/L Ammonia (11-32) umol/L Troponin I 0.07 (0.00-0.070) ng/mL TSH, Ultra Sensitive (0.340-4.820) uIU/mL Specimen Type Urinvoid Urine Color Yellow (YELLOW) Urine Appearance Clear (CLEAR) Urine pH 6.0 (5.0-9.0) Ur Specific [place] 1.010 (1.005-1.030) Urine Protein Negative (NEGATIVE) mg/dL Urine Glucose (UA) Negative (NEGATIVE) mg/dL Urine Ketones Negative (NEGATIVE) mg/dL Urine Occult Blood Negative (NEGATIVE) Urine Nitrite Negative (NEGATIVE) Urine Bilirubin Negative (NEGATIVE) Urine Urobilinogen 0.2 (0.2-1.0) E.U./dL Ur Leukocyte Esterase Negative (NEGATIVE) Urine RBC 0-5 (0-5) /HPF Urine WBC 0-5 (0-5) /HPF Ur Epithelial Cells Many H /LPF Urine Bacteria Occasional (NONE TO FEW) /HPF Urine Opiates Screen Negative (NEGATIVE) Ur Oxycodone Screen Negative (NEGATIVE) Urine Methadone Screen Negative (NEGATIVE) Ur Propoxyphene Screen Negative (NEGATIVE) Ur Barbiturates Screen Negative (NEGATIVE) Ur Tricyclics Screen Negative (NEGATIVE) Ur Phencyclidine Scrn Negative (NEGATIVE) Ur Amphetamine Screen Negative (NEGATIVE) U Methamphetamines Scrn Negative (NEGATIVE) U Benzodiazepines Scrn Negative (NEGATIVE) U Cocaine Metab Screen Negative (NEGATIVE) U Marijuana (THC) Screen Negative (NEGATIVE) 05/26/18 05/26/18 05/26/18 Range/Units 14:30 14:30 14:30 PT 9.1 (8.9-11.4) SEC INR 0.9 (0.9-1.1) Lactic Acid (0.4-2.0) mmol/L Ammonia 6 L (11-32) umol/L Troponin I (0.00-0.070) ng/mL TSH, Ultra Sensitive 0.890 (0.340-4.820) uIU/mL Specimen Type Urine Color (YELLOW) Urine Appearance (CLEAR) Urine pH (5.0-9.0) Ur Specific [place] (1.005-1.030) Urine Protein (NEGATIVE) mg/dL Urine Glucose (UA) (NEGATIVE) mg/dL Urine Ketones (NEGATIVE) mg/dL Urine Occult Blood (NEGATIVE) Urine Nitrite (NEGATIVE) Urine Bilirubin (NEGATIVE) Urine Urobilinogen (0.2-1.0) E.U./dL Ur Leukocyte Esterase (NEGATIVE) Urine RBC (0-5) /HPF Urine WBC (0-5) /HPF Ur Epithelial Cells /LPF Urine Bacteria (NONE TO FEW) /HPF Urine Opiates Screen (NEGATIVE) Ur Oxycodone Screen (NEGATIVE) Urine Methadone Screen (NEGATIVE) Ur Propoxyphene Screen (NEGATIVE) Ur Barbiturates Screen (NEGATIVE) Ur Tricyclics Screen (NEGATIVE) Ur Phencyclidine Scrn (NEGATIVE) Ur Amphetamine Screen (NEGATIVE) U Methamphetamines Scrn (NEGATIVE) U Benzodiazepines Scrn (NEGATIVE) U Cocaine Metab Screen (NEGATIVE) U Marijuana (THC) Screen (NEGATIVE) 05/26/18 05/26/18 Range/Units 18:00 18:00 PT (8.9-11.4) SEC INR (0.9-1.1) Lactic Acid 1.5 (0.4-2.0) mmol/L Ammonia (11-32) umol/L Troponin I 0.05 (0.00-0.070) ng/mL TSH, Ultra Sensitive (0.340-4.820) uIU/mL Specimen Type Urine Color (YELLOW) Urine Appearance (CLEAR) Urine pH (5.0-9.0) Ur Specific [place] (1.005-1.030) Urine Protein (NEGATIVE) mg/dL Urine Glucose (UA) (NEGATIVE) mg/dL Urine Ketones (NEGATIVE) mg/dL Urine Occult Blood (NEGATIVE) Urine Nitrite (NEGATIVE) Urine Bilirubin (NEGATIVE) Urine Urobilinogen (0.2-1.0) E.U./dL Ur Leukocyte Esterase (NEGATIVE) Urine RBC (0-5) /HPF Urine WBC (0-5) /HPF Ur Epithelial Cells /LPF Urine Bacteria (NONE TO FEW) /HPF Urine Opiates Screen (NEGATIVE) Ur Oxycodone Screen (NEGATIVE) Urine Methadone Screen (NEGATIVE) Ur Propoxyphene Screen (NEGATIVE) Ur Barbiturates Screen (NEGATIVE) Ur Tricyclics Screen (NEGATIVE) Ur Phencyclidine Scrn (NEGATIVE) Ur Amphetamine Screen (NEGATIVE) U Methamphetamines Scrn (NEGATIVE) U Benzodiazepines Scrn (NEGATIVE) U Cocaine Metab Screen (NEGATIVE) U Marijuana (THC) Screen (NEGATIVE) Med Orders - Current: Current Medications Al Hydroxide/Mg Hydroxide (Mag-Al Plus) 30 ml PO Q4H PRN PRN Reason: Heartburn Last Admin: 05/27/18 08:20 Dose: 30 ml Albuterol/Ipratropium (Duoneb 3.0-0.5 Mg/3 Ml) 3 ml NEB Q4H PRN PRN Reason: Shortness Of Breath/wheezing Atenolol (Tenormin) 50 mg PO DAILY [facility] Atropine Sulfate (Atropine 0.1 Mg/Ml) 0 mg IVPUSH ASDIRECTED PRN PRN Reason: Heart Calcium Carbonate/Glycine (Tums) 500 mg PO DAILY PRN PRN Reason: Heartburn Diphenhydramine HCl (Benadryl) 25 mg PO BEDTIME PRN PRN Reason: Insomnia Epinephrine HCl (Epinephrine 1:10,000) 1 mg IVPUSH ASDIRECTED PRN PRN Reason: Heart Sodium Chloride (Normal Saline) 1,000 mls @ 125 mls/hr IV ASDIRECTED [facility] Last Admin: 05/26/18 23:42 Dose: 125 mls/hr Lidocaine HCl (Xylocaine 2%) 0 mg IVPUSH ASDIRECTED PRN PRN Reason: Heart Nicotine (Habitrol) 21 mg TRDERM DAILY [facility] Last Admin: 05/27/18 08:19 Dose: 21 mg Nitroglycerin (Nitrostat) 0.4 mg SL ASDIRECTED PRN PRN Reason: Heart Omeprazole (Omeprazole) 20 mg PO ACBREAKFAST [facility] Last Admin: 05/27/18 07:37 Dose: 20 mg Ondansetron HCl (Zofran) 4 mg IV Q6H PRN PRN Reason: Nausea/Vomiting Ondansetron HCl (Zofran Odt) 4 mg PO Q4H PRN PRN Reason: nausea, able to take PO Sodium Chloride (Saline Flush) 10 ml FLUSH Q8HR PRN PRN Reason: keep vein open Thiamine HCl (Vitamin B-1) 100 mg IM DAILY [facility] Last Admin: 05/27/18 09:29 Dose: 100 mg Discontinued Medications Al Hydroxide/Mg Hydroxide (Gi Cocktail) 45 ml PO ONETIME ONE Stop: 05/26/18 13:36 Last Admin: 05/26/18 14:13 Dose: 45 ml Albuterol/Ipratropium (Duoneb 3.0-0.5 Mg/3 Ml) 3 ml NEB ONETIME ONE Stop: 05/26/18 06:57 Last Admin: 05/26/18 07:23 Dose: 3 ml Aspirin (Aspirin) 324 mg PO ONETIME ONE Stop: 05/26/18 07:37 Last Admin: 05/26/18 10:19 Dose: 324 mg Sodium Chloride (Normal Saline) 1,000 mls @ 999 mls/hr IV .BOLUS ONE Stop: 05/26/18 07:46 Last Admin: 05/26/18 07:22 Dose: 999 mls/hr Sodium Chloride (Normal Saline) 1,000 mls @ 999 mls/hr IV .BOLUS ONE Stop: 05/26/18 14:46 Last Admin: 05/26/18 14:08 Dose: 999 mls/hr Piperacillin/Tazobactam/Dextrose 3.375 gm/ Sodium Chloride 100 mls @ 200 mls/ hr IV Q6H TIER[place] Piperacillin/Tazobactam/Dextrose 3.375 gm/ Sodium Chloride 150 mls @ 300 mls/ hr IV Q6H [facility] Last Admin: 05/26/18 18:16 Dose: Not Given Piperacillin/Tazobactam/ (Dextrose 3.375 gm/ Premix) 50 mls @ 100 mls/hr IV Q6H [facility] Last Admin: 05/26/18 18:42 Dose: 100 mls/hr Ondansetron HCl (Zofran) 4 mg IVPUSH ONETIME ONE Stop: 05/26/18 06:57 Last Admin: 05/26/18 07:23 Dose: 4 mg - Exam Quality Assessment: Denies: Supplemental Oxygen General: Reports: Alert, Oriented Lungs: Reports: Clear to Auscultation, Normal Respiratory Effort Cardiovascular: Reports: Regular Rate, Regular Rhythm Psy/Mental Status: Reports: Alert, Normal Affect, Normal Mood. Denies: Depressed, Agitated, Withdrawal Symptoms
== END 2018-05-27 11:00 | disposition home or self-care (01) ==
LOC: KA.ED 06:27 → KA.MS 07:37
PROVIDERS: ADMIT Physician Assistant Medical; ATTEND Nurse Practitioner Family
DX: R07.9 Chest pain, unspecified (principal); J40 Bronchitis, not specified as acute or chronic; R74.0 Nonspecific elevation of levels of transaminase and lactic acid dehydrogenase [LDH]; F17.210 Nicotine dependence, cigarettes, uncomplicated; G71.09 Other specified muscular dystrophies; I10 Essential (primary) hypertension; K21.9 Gastro-esophageal reflux disease without esophagitis; M79.7 Fibromyalgia; F41.9 Anxiety disorder, unspecified; F32.9 Major depressive disorder, single episode, unspecified; F10.10 Alcohol abuse, uncomplicated; Y90.6 Blood alcohol level of 120-199 mg/100 ml; Z88.8 Allergy status to other drugs, medicaments and biological substances; Z88.1 Allergy status to other antibiotic agents; Z91.030 Bee allergy status; Z79.899 Other long term (current) drug therapy
CPT/HCPCS: 36415; 71046; 80053; 80074; 80305; 81001; 82140; 82550; 82553; 83605; 83690; 84443; 84484; 85025; 85610; 87040; 93005; 96361; 96365; 96372; 96375; 99284; 99285; A9270; G0378; G0480; J2405; J2543; J3411; J7030; 96374; J7620-GY

== ENCOUNTER 2020-05-03 14:41 | Emergency (ER) | payer MEDICAID, MEDICARE, OTHER ==
[2020-05-03] MEDS ORDERED: Sodium Chloride 0.9% 10 ML Syringe FLUSH PRN (14:44)
[2020-05-03] MEDS ORDERED: Ondansetron 4 MG/2 ML SDV IVPUSH ONE (14:44)
--- NOTE | 2020-05-03 14:48 | EDM.PDOC ---
ED HPI GENERAL MEDICAL PROBLEM - General Chief Complaint: Respiratory Problem Stated Complaint: COVID SYMPTOMS Time Seen by Provider: 05/03/20 14:43 Source of Information: Reports: Patient History Limitations: Reports: No Limitations - History of Present Illness INITIAL COMMENTS - FREE TEXT/NARRATIVE: Elizabeth, 55-year-old female, presents by private vehicle with positive COVID-19 diagnosis today, and associated symptoms for the past 9 days. She has a history of emphysema and has not been doing well the past few days in general. Fevers with associated symptoms of headache, shortness of breath, generalized body aches, nausea, and diarrhea have persisted. She is attempted appropriate intake but states it is not always been compatible. She had been seen earlier today in a virtual video visit with Dr. Declan Mcfarland and was advised to seek work-up at the emergency department based on those findings. She is presenting via private vehicle with no supplemental oxygen. Onset Date: 04/25/20 Duration: Day(s):, Getting Worse Location: Reports: Chest, Generalized Quality: Reports: Ache, Throbbing Severity: Severe Improves with: Reports: None Worsens with: Reports: Movement Context: Reports: Sick Contact Associated Symptoms: Reports: Chest Pain, Cough, Fever/Chills, Nausea/Vomiting, Shortness of Breath, Weakness Headache Pain Score (Numeric/FACES): 8 Chest Pain Score (Numeric/FACES): 7 - Related Data Allergies Allergy/AdvReac Type Severity Reaction Status Date / Time bee venom protein (honey bee) Allergy Edema Verified 05/03/20 15:20 carbamazepine [From Tegretol] Allergy Cardiac Verified 05/03/20 15:20 Arrest erythromycin base Allergy Rash Verified 05/03/20 15:20 Home Meds: Home Meds Acetaminophen [Tylenol] 650 mg PO Q6H PRN 05/26/18 [History] Albuterol [Ventolin HFA] 1 puff INH Q4HR PRN 05/26/18 [History] Calcium Carbonate [Tums] 1 tab PO DAILY PRN 05/26/18 [History] Ondansetron [Zofran ODT] 4 mg PO Q4HR PRN 05/26/18 [History] SUMAtriptan succinate [Imitrex] 100 mg PO Q2HR PRN 05/26/18 [History] atenoloL [Atenolol] 50 mg PO DAILY 05/26/18 [History] diphenhydrAMINE [Benadryl] 25 mg PO BEDTIME PRN 05/26/18 [History] Omeprazole 20 mg PO DAILY #30 tab 05/27/18 [Rx] Past Medical History HEENT History: Reports: None Cardiovascular History: Reports: Hypertension Respiratory History: Reports: COPD, Other (See Below) (lung nodule) Gastrointestinal History: Reports: GERD Genitourinary History: Reports: Renal Calculus, Other (See Below) (unilateral nephrectomy) [employer] History: Reports: Musculoskeletal History: Reports: Fibromyalgia, Muscular Dystrophy Neurological History: Reports: Migraines, Neuropathy, Peripheral, Seizure Psychiatric History: Reports: Addiction, Anxiety, Depression Endocrine/Metabolic History: Reports: Osteopenia Hematologic History: Reports: Other (See Below) Other Hematologic History: Factor V deficiency Immunologic History: Reports: None Oncologic (Cancer) History: Reports: None Dermatologic History: Reports: None - Past Surgical History HEENT Surgical History: Reports: None Female Surgical History: Reports: Kidney stone extraction, Nephrectomy Dermatological Surgical History: Reports: None Social & Family History - Family History Family Medical History: No Pertinent Family History HEENT: Reports: None Cardiac: Reports: None Respiratory: Reports: Asthma GI: Reports: None : Reports: None OBGYN: Reports: None Musculoskeletal: Reports: None Neurological: Reports: None Psychiatric: Reports: Depression Endocrine/Metabolic: Reports: Diabetes, type II Hematologic: Reports: None Immunologic: Reports: None - Tobacco Use Tobacco Use Status *Q: Current Every Day Tobacco User Tobacco Use Within Last Twelve Months: Cigarettes Used Tobacco, but Quit: No Smoking Cessation Information Provided To Patient: Patient Refused - Caffeine Use Caffeine Use: Reports: Coffee, Soda ED ROS GENERAL - Review of Systems Review Of Systems: See Below Constitutional: Reports: Fever, Chills, Malaise, Weakness, Fatigue HEENT: Reports: No Symptoms Respiratory: Reports: Shortness of Breath, Wheezing, Pleuritic Chest Pain, Cough, Sputum Cardiovascular: Reports: Chest Pain Endocrine: Reports: Fatigue GI/Abdominal: Reports: Diarrhea : Reports: No Symptoms Musculoskeletal: Reports: Muscle Pain, Muscle Stiffness Skin: Reports: No Symptoms Psychiatric: Reports: No Symptoms ED EXAM, GENERAL - Physical Exam Exam: See Below Free Text/Narrative:: Alert, oriented, in acute painful distress, unable to get comfortable. HEENT shows tacky oral membranes with no erythema. PERRLA no icterus no injection. Neck is soft supple generalized muscular tenderness to the major muscle groups as well as the paraspinal muscles of the neck. Thorax is diminished with scattered wheeze on exhalation faintly heard more prominent bases. Cardiac S1-S2 I do not appreciate murmur. Tenderness is noted to palpation of the chest wall. Abdomen has hyperactive bowel sounds with no specific tenderness/pain to palpation but general musculature concerns throughout her body. Lower extremities are free of edema associated tenderness to the major muscle groups with motion. She complains of generalized pain, weakness, headache, as well as diarrhea. Positive COVID-19 testing at [facility] today with 9-day onset of symptoms. #1 Interpretation EKG Date: 05/03/20 Time: 15:01 Rhythm: NSR [place]: Normal QRS: Normal ST-T: Depressed QT: Normal Comparison: Change From Previous EKG (05/26/2018) Course - Vital Signs Last Recorded V/S: Last Vital Signs Temp 100.2 F 05/03/20 18:16 Pulse 69 05/03/20 18:16 Resp 20 05/03/20 18:16 BP 127/84 05/03/20 18:16 Pulse Ox 100 05/03/20 18:16 - Orders/Labs/Meds Orders: Active Orders 24 hr Category Date Time Status EKG Documentation Completion [RC] ASDIRECTED Care 05/03/20 14:47 Active Peripheral IV Care [RC] . DIRECTED Care 05/03/20 14:44 Active CULTURE BLOOD [BC] Stat Lab 05/03/20 15:10 Received CULTURE BLOOD [BC] Stat Lab 05/03/20 16:00 Received CULTURE URINE [RM] Urgent Lab 05/03/20 14:50 Received Sodium Chloride 0.9% [Normal Saline] 100 ml Med 05/03/20 17:15 Active IV ASDIRECTED Sodium Chloride 0.9% [Saline Flush] Med 05/03/20 14:44 Active 10 ml FLUSH Q8HR PRN Blood Culture x2 Reflex Set [OM.PC] Stat Oth 05/03/20 14:50 Ordered Peripheral IV Insertion Adult [OM.PC] Routine Oth 05/03/20 14:44 Ordered EKG 12 Lead [EK] Urgent Ther 05/03/20 14:46 Ordered Medication Orders Sodium Chloride (Normal Saline) 100 mls @ 200 mls/hr IV ASDIRECTED TIERRA Last Admin: 05/03/20 17:39 Dose: 200 mls/hr Documented by: ANTOINETTE Sodium Chloride (Saline Flush) 10 ml FLUSH Q8HR PRN PRN Reason: keep vein open Labs: Laboratory Tests 05/03/20 05/03/20 05/03/20 Range/Units 14:45 14:50 14:50 WBC 7.82 (5.00-10.00) 10^3/uL RBC 4.62 (3.80-5.50) 10^6/uL Hgb 16.0 D (12.0-16.0) g/dL Hct 46.1 (37.0-47.0) % MCV 99.8 H D (82.0-92.0) fL MCH 34.6 H (27.0-31.0) pg MCHC 34.7 (32.0-36.0) g/dL RDW 12.8 (11.5-14.5) % Plt Count 162 (150-400) 10^3/uL MPV 10.7 H (7.4-10.4) fL Immature Gran % (Auto) 0.1 (0.0-5.0) % Neut % (Auto) 75.0 H (50.0-70.0) % Lymph % (Auto) 20.6 (20.0-40.0) % [place] % (Auto) 4.2 (2.0-8.0) % Eos % (Auto) 0.0 L (1.0-3.0) % Baso % (Auto) 0.1 (0.0-1.0) % Neut # (Auto) 5.86 (2.50-7.00) 10^3/uL Lymph # (Auto) 1.61 (1.00-4.00) 10^3/uL [place] # (Auto) 0.33 (0.10-0.80) 10^3/uL Eos # (Auto) 0.00 L (0.10-0.30) 10^3/uL Baso # (Auto) 0.01 (0.00-0.10) 10^3/uL Immature Gran # (Auto) 0.01 (0.00-0.50) 10^3/uL D-Dimer, Quantitative 952 H (<400) ng/mL Sodium 133 L (136-145) mmol/L Potassium 3.4 L (3.5-5.1) mmol/L Chloride 98 (98-107) mmol/L Carbon Dioxide 25.9 (21.0-32.0) mmol/L Anion Gap 12.5 (5-15) mmol/L BUN 11 (7-18) mg/dL Creatinine 0.77 (0.51-1.17) mg/dL Est Cr Clr Drug Dosing 69.61 mL/min Estimated GFR (MDRD) > 60 mL/min Glucose 100 (70-140) mg/dL Lactic Acid (0.4-2.0) mmol/L Calcium 9.0 (8.7-10.3) mg/dL Total Bilirubin 0.3 (0.2-1.0) mg/dL AST 20 (15-37) U/L ALT 20 (14-63) U/L Alkaline Phosphatase 75 (46-116) U/L Creatine Kinase 143 (26-276) U/L CK-MB (CK-2) 0.79 (0.00-3.60) ng/mL Troponin I < 0.017 (0.000-0.056) ng/mL Total Protein 6.9 (6.4-8.2) g/dL Albumin 3.20 L (3.40-5.00) g/dL Specimen Type Urine Color (YELLOW) Urine Appearance (CLEAR) Urine pH (5.0-9.0) Ur Specific [place] (1.005-1.030) Urine Protein (NEGATIVE) mg/dL Urine Glucose (UA) (NEGATIVE) mg/dL Urine Ketones (NEGATIVE) mg/dL Urine Occult Blood (NEGATIVE) Urine Nitrite (NEGATIVE) Urine Bilirubin (NEGATIVE) Urine Urobilinogen (0.2-1.0) E.U./dL Ur Leukocyte Esterase (NEGATIVE) Urine RBC (0-5) /HPF Urine WBC (0-5) /HPF Ur Epithelial Cells /LPF Urine Bacteria (NONE TO FEW) /HPF 05/03/20 05/03/20 Range/Units 14:50 14:50 WBC (5.00-10.00) 10^3/uL RBC (3.80-5.50) 10^6/uL Hgb (12.0-16.0) g/dL Hct (37.0-47.0) % MCV (82.0-92.0) fL MCH (27.0-31.0) pg MCHC (32.0-36.0) g/dL RDW (11.5-14.5) % Plt Count (150-400) 10^3/uL MPV (7.4-10.4) fL Immature Gran % (Auto) (0.0-5.0) % Neut % (Auto) (50.0-70.0) % Lymph % (Auto) (20.0-40.0) % [place] % (Auto) (2.0-8.0) % Eos % (Auto) (1.0-3.0) % Baso % (Auto) (0.0-1.0) % Neut # (Auto) (2.50-7.00) 10^3/uL Lymph # (Auto) (1.00-4.00) 10^3/uL [place] # (Auto) (0.10-0.80) 10^3/uL Eos # (Auto) (0.10-0.30) 10^3/uL Baso # (Auto) (0.00-0.10) 10^3/uL Immature Gran # (Auto) (0.00-0.50) 10^3/uL D-Dimer, Quantitative (<400) ng/mL Sodium (136-145) mmol/L Potassium (3.5-5.1) mmol/L Chloride (98-107) mmol/L Carbon Dioxide (21.0-32.0) mmol/L Anion Gap (5-15) mmol/L BUN (7-18) mg/dL Creatinine (0.51-1.17) mg/dL Est Cr Clr Drug Dosing mL/min Estimated GFR (MDRD) mL/min Glucose (70-140) mg/dL Lactic Acid 1.8 (0.4-2.0) mmol/L Calcium (8.7-10.3) mg/dL Total Bilirubin (0.2-1.0) mg/dL AST (15-37) U/L ALT (14-63) U/L Alkaline Phosphatase (46-116) U/L Creatine Kinase (26-276) U/L CK-MB (CK-2) (0.00-3.60) ng/mL Troponin I (0.000-0.056) ng/mL Total Protein (6.4-8.2) g/dL Albumin (3.40-5.00) g/dL Specimen Type Urincc Urine Color Yellow (YELLOW) Urine Appearance Turbid H (CLEAR) Urine pH 5.5 (5.0-9.0) Ur Specific [place] 1.025 (1.005-1.030) Urine Protein 30 H (NEGATIVE) mg/dL Urine Glucose (UA) Negative (NEGATIVE) mg/dL Urine Ketones Trace H (NEGATIVE) mg/dL Urine Occult Blood Trace-lysed H (NEGATIVE) Urine Nitrite Negative (NEGATIVE) Urine Bilirubin Small H (NEGATIVE) Urine Urobilinogen 0.2 (0.2-1.0) E.U./dL Ur Leukocyte Esterase Small H (NEGATIVE) Urine RBC 5-10 H (0-5) /HPF Urine WBC 50-75 H (0-5) /HPF Ur Epithelial Cells Moderate H /LPF Urine Bacteria Few (NONE TO FEW) /HPF Meds: Medications Generic Name Dose Route Start Last Admin Trade Name Freq PRN Reason Stop Dose Admin Sodium Chloride 100 mls @ 200 mls/hr 05/03/20 17:15 05/03/20 17:39 Normal Saline IV 200 mls/hr ASDIRECTED TIERRA Administration Sodium Chloride 10 ml 05/03/20 14:44 Saline Flush FLUSH Q8HR PRN keep vein open Discontinued Medications Generic Name Dose Route Start Last Admin Trade Name Freq PRN Reason Stop Dose Admin Hydromorphone HCl 1 mg 05/03/20 15:40 05/03/20 15:47 Dilaudid IVPUSH 05/03/20 15:41 1 mg ONETIME ONE Administration Sodium Chloride 1,000 mls @ 999 mls/hr 05/03/20 14:51 05/03/20 15:00 Normal Saline IV 05/03/20 15:51 999 mls/hr .BOLUS ONE Administration Sodium Chloride Confirm 05/03/20 14:50 05/03/20 15:24 Normal Saline Administered 05/03/20 14:51 Not Given Dose 1,000 mls @ as directed .ROUTE .STK-MED ONE Iopamidol 75 ml 05/03/20 17:02 05/03/20 17:39 Isovue-370 (76%) IVPUSH 05/03/20 17:03 75 ml ONETIME ONE Administration Ondansetron HCl 8 mg 05/03/20 14:44 05/03/20 15:00 Zofran IVPUSH 05/03/20 14:45 8 mg ONETIME ONE Administration - Radiology Interpretation Free Text/Narrative:: Radiology reading, no pneumonia/acute findings. CT with contrast shows no evidence of pulmonary embolus. Consideration for viral pneumonia. - Re-Assessments/Exams Free Text/Narrative Re-Assessment/Exam: 05/03/20 18:35 Contact with Cristina Caba, on-call provider for [facility] regarding findings. Discussion leads to discharging Elizabeth marquez and that the [facility] will contact her in the morning and arrange a televisit with Dr. Declan Valenzuela for further discussion and potential for monoclonal antibody infusion based on risk and benefit of her chronic status. Elizabeth and her spouse were advised of this and are in agreement she is happy to be able to be discharged home from the emergency department this evening. Free Text/Narrative Re-Assessment/Exam: 05/03/20 18:57 Significant improvement in nausea and headache with these all granisteron and Dilaudid. Departure - Departure Time of Disposition: 18:40 Disposition: Home, Self-Care 01 Condition: Good Clinical Impression: Lab test positive for detection of COVID-19 virus, Headache, Body aches, Drea rrhea - Discharge Information *PRESCRIPTION DRUG MONITORING PROGRAM REVIEWED*: Not Applicable *COPY OF PRESCRIPTION DRUG MONITORING REPORT IN PATIENT CHHAYA: Not Applicable Instructions: COVID-19: Quarantine vs. Isolation - CDC, COVID-19: How to Protect Yourself and Others - CDC, Prevent the Spread of COVID-19 if You Are Sick - CDC Referrals: Blanquita Santillan MD [Primary Care Provider] - Forms: ED Department Discharge Additional Instructions: Findings today on evaluation show that in conjunction with your COVID-19 diagnosis, you have the start of the left lower lobe viral pneumonia. This was shown on the CT scan that was performed for evaluation of the elevated D-dimer, and potential for blood clot in your lung (pulmonary embolus), which was negative for clot. We will give you pain medication to take tonight to help with your headache. You need to take all of your prescription medications as ordered. Make sure you sip on water and maintain good hydration status, eating small amounts that you are able to tolerate. COVID-19 has no specific pattern to how it affects each individual, some of which have stable symptoms but linger for several days, and others have a worsening of the respiratory symptoms requiring return to the hospital. The clinic will be contacting you in the morning to arrange a video conference to discuss your status and treatment options at that time. In the event you feel that you are getting worse over the night call or return to the emergency department as needed. Sepsis Event Note (ED) - Focused Exam Vital Signs: Vital Signs Temp Pulse Resp BP Pulse Ox 05/03/20 18:16 100.2 F 69 20 127/84 100 05/03/20 16:12 101.8 F H 84 24 H 130/74 99 05/03/20 15:29 102 F H 75 26 H 119/73 96 05/03/20 14:45 101.2 F H 89 24 H 95/79 95 - Problem List & Annotations (1) Lab test positive for detection of COVID-19 virus SNOMED Code(s): 8293518832046028 Code(s): U07.1 - COVID-19 Status: Acute Priority: High Current Visit: Yes (2) Shortness of breath SNOMED Code(s): 432487690 Code(s): R06.02 - SHORTNESS OF BREATH Status: Acute Priority: High Current Visit: Yes (3) Headache SNOMED Code(s): 56262042 Code(s): R51.9 - HEADACHE, UNSPECIFIED Status: Acute Priority: High Current Visit: Yes Qualifiers: Headache type: other headache syndrome Qualified Code(s): G44.89 - Other headache syndrome (4) Body aches SNOMED Code(s): 29477890 Code(s): R52 - PAIN, UNSPECIFIED Status: Acute Priority: High Current Visit: Yes (5) Fever SNOMED Code(s): 648265658 Code(s): R50.9 - FEVER, UNSPECIFIED Status: Acute Priority: High Current Visit: Yes Qualifiers: Encounter type: subsequent encounter (6) Diarrhea SNOMED Code(s): 50306775 Code(s): R19.7 - DIARRHEA, UNSPECIFIED Status: Acute Priority: High Current Visit: Yes Qualifiers: Diarrhea type: unspecified type Qualified Code(s): R19.7 - Diarrhea, unspecified (7) Oculopharyngeal muscular dystrophy SNOMED Code(s): 66651014 Code(s): G71.09 - OTHER SPECIFIED MUSCULAR DYSTROPHIES Status: Chronic Priority: Medium Current Visit: Yes (8) Elevated d-dimer SNOMED Code(s): 315211432 Code(s): R79.89 - OTHER SPECIFIED ABNORMAL FINDINGS OF BLOOD CHEMISTRY Status: Acute Priority: High Current Visit: Yes (9) Viral pneumonia, unspecified SNOMED Code(s): 16609633 Code(s): J12.9 - VIRAL PNEUMONIA, UNSPECIFIED Status: Acute Priority: High Current Visit: Yes Annotation/Comment:: Left lower base - Problem List Review Problem List Initiated/Reviewed/Updated: Yes - My Orders Last 24 Hours: My Active Orders 05/03/20 14:44 Peripheral IV Care [RC] . DIRECTED Sodium Chloride 0.9% [Saline Flush] 10 ml FLUSH Q8HR PRN Peripheral IV Insertion Adult [OM.PC] Routine 05/03/20 14:46 EKG 12 Lead [EK] Urgent 05/03/20 14:47 EKG Documentation Completion [RC] ASDIRECTED 05/03/20 14:50 CULTURE URINE [RM] Urgent Blood Culture x2 Reflex Set [OM.PC] Stat 05/03/20 15:10 CULTURE BLOOD [BC] Stat 05/03/20 16:00 CULTURE BLOOD [BC] Stat 05/03/20 17:15 Sodium Chloride 0.9% [Normal Saline] 100 ml IV ASDIRECTED - Assessment/Plan Last 24 Hours: My Active Orders 05/03/20 14:44 Peripheral IV Care [RC] . DIRECTED Sodium Chloride 0.9% [Saline Flush] 10 ml FLUSH Q8HR PRN Peripheral IV Insertion Adult [OM.PC] Routine 05/03/20 14:46 EKG 12 Lead [EK] Urgent 05/03/20 14:47 EKG Documentation Completion [RC] ASDIRECTED 05/03/20 14:50 CULTURE URINE [RM] Urgent Blood Culture x2 Reflex Set [OM.PC] Stat 05/03/20 15:10 CULTURE BLOOD [BC] Stat 05/03/20 16:00 CULTURE BLOOD [BC] Stat 05/03/20 17:15 Sodium Chloride 0.9% [Normal Saline] 100 ml IV ASDIRECTED Plan: Findings today on evaluation show that in conjunction with your COVID-19 diagn osis, you have the start of the left lower lobe viral pneumonia. This was shown on the CT scan that was performed for evaluation of the elevated D-dimer, and potential for blood clot in your lung (pulmonary embolus), which was negative for clot. We will give you pain medication to take tonight to help with your headache. You need to take all of your prescription medications as ordered. Make sure you sip on water and maintain good hydration status, eating small amounts that you are able to tolerate. COVID-19 has no specific pattern to how it affects each individual, some of which have stable symptoms but linger for several days, and others have a worsening of the respiratory symptoms requiring return to the hospital. The clinic will be contacting you in the morning to arrange a video conference to discuss your status and treatment options at that time. In the event you feel that you are getting worse over the night call or return to the emergency department as needed.
[2020-05-03] MEDS ORDERED: Sodium Chloride 0.9% 1,000 ML ONE (14:50)
[2020-05-03] MEDS ORDERED: Sodium Chloride 0.9% 1,000 ML IV ONE (14:51)
--- NOTE | 2020-05-03 15:24 | CR ---
[id number] RAD/RAD Chest PA or AP 1V EXAM: SINGLE VIEW CHEST. INDICATION: COVID SHORTNESS OF BREATH COMPARISON: CORRELATION IS MADE WITH MAY 26, 2018 FINDINGS: There is no pneumonia The cardiac silhouette is stable IMPRESSION: STABLE CHEST Benji Marie MD 05/03/20 [id number] Thank you for allowing us to participate in the care of your patient.
[2020-05-03] MEDS ORDERED: HYDROmorphone 1 MG/ML Syringe IVPUSH ONE (15:40)
[2020-05-03 16:20] LABS: ANION GAP 12.5 mmol/L (5-15); CHLORIDE,CL 98 mmol/L (98-107); SODIUM,NA 133 mmol/L (136-145)
[2020-05-03] MEDS ORDERED: Iopamidol 755 Mg/ML 75 ML Bottle IVPUSH ONE (17:02)
[2020-05-03] MEDS ORDERED: Sodium Chloride 0.9% 100 ML IV SCH (17:15)
--- NOTE | 2020-05-03 18:01 | CT ---
[id number] CT/CTA Chest Exam: CTA Chest Clinical Data: COVID ELEVATED D-DIMER SHORTNESS OF BREATH COMPARISON: NO PREVIOUS SIMILAR EXAM IS AVAILABLE FINDINGS: There is significant left basilar infiltrate involving the lingula and left lower lobe There are no pulmonary emboli There is no mediastinal mass or adenopathy There is no adrenal mass IMPRESSION: NO PULMONARY EMBOLI LINGULAR AND LEFT LOWER LOBE PNEUMONIA Benji Marie MD 05/03/20 1800 Thank you for allowing us to participate in the care of your patient.
[2020-05-03] MEDS ORDERED: Acetaminophen/HYDROcodone 325-10 MG Tab PO PRN (18:41)
== END 2020-05-03 19:00 | disposition home or self-care (01) ==
LOC: KA.ED 14:41
DX: U07.1 COVID-19 (principal); I10 Essential (primary) hypertension; J44.9 Chronic obstructive pulmonary disease, unspecified; K21.9 Gastro-esophageal reflux disease without esophagitis; G62.9 Polyneuropathy, unspecified; Z91.030 Bee allergy status; Z88.1 Allergy status to other antibiotic agents; Z88.8 Allergy status to other drugs, medicaments and biological substances; Z79.899 Other long term (current) drug therapy; Z72.0 Tobacco use
CPT/HCPCS: 36415; 71045; 71275; 80053; 81001; 82550; 82553; 83605; 84484; 85025; 85379; 87040; 87086; 96374; 96375; 99285; A9270; J1170; J2405; J7030; Q9967; 93005; 99284

== ENCOUNTER 2020-05-04 13:55 | Emergency (ER) | payer MEDICARE ==
--- NOTE | 2020-05-04 14:12 | EDM.PDOC ---
ED HPI GENERAL MEDICAL PROBLEM - General Chief Complaint: General Stated Complaint: Short of breath/cough Time Seen by Provider: 05/04/20 14:12 Source of Information: Reports: Patient History Limitations: Reports: No Limitations - History of Present Illness INITIAL COMMENTS - FREE TEXT/NARRATIVE: Elizabeth, 55-year-old female, presents today to the hospital for the administration of the Bamlanivimab. monoclonal antibody. Elizabeth had been seen in the emergency department yesterday with no supplemental oxygen requirement, no bacterial infection with elevated D-dimer and a likely early infiltrate starting in the left lower quadrant is assumed to be viral in nature. She underwent CT with IV contrast secondary of the elevated D-dimer which was negative for pulmonary embolus but did confirm the left lower infiltrate formation. Case was discussed with [facility] provider head of acquisitions who agreed she could be discharged home and they would follow-up with her this morning for the Bamlaniv imab infusion. For what ever reason Elizabeth presented this afternoon, as it was my understanding she was to arrive early this morning for that infusion. Unfortunately, she is taking a turn for the worse requiring oxygenation and IV fluid secondary of intermittent tachycardia breakthrough. She no longer remains a candidate for the monoclonal antibody and will be a consideration for admission pending work-up. She has had increased cough states mild improvement of pain but has noted worsening respiratory effort, shortness of breath, and cool extremities. Headache Pain Score (Numeric/FACES): 8 - Related Data Allergies Allergy/AdvReac Type Severity Reaction Status Date / Time bee venom protein (honey bee) Allergy Edema Verified 05/04/20 14:22 carbamazepine [From Tegretol] Allergy Cardiac Verified 05/04/20 14:22 Arrest erythromycin base Allergy Rash Verified 05/04/20 14:22 Home Meds: Home Meds Acetaminophen [Tylenol] 650 mg PO Q6H PRN 05/26/18 [History] Albuterol [Ventolin HFA] 1 puff INH Q4HR PRN 05/26/18 [History] Calcium Carbonate [Tums] 1 tab PO DAILY PRN 05/26/18 [History] Ondansetron [Zofran ODT] 4 mg PO Q4HR PRN 05/26/18 [History] SUMAtriptan succinate [Imitrex] 100 mg PO Q2HR PRN 05/26/18 [History] atenoloL [Atenolol] 50 mg PO DAILY 05/26/18 [History] diphenhydrAMINE [Benadryl] 25 mg PO BEDTIME PRN 05/26/18 [History] Omeprazole 20 mg PO DAILY #30 tab 05/27/18 [Rx] Past Medical History HEENT History: Reports: Impaired Vision Cardiovascular History: Reports: Hypertension Respiratory History: Reports: COPD, Other (See Below) (lung nodule) Gastrointestinal History: Reports: GERD Genitourinary History: Reports: Renal Calculus, Other (See Below) (unilateral nephrectomy) 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: Musculoskeletal History: Reports: Fibromyalgia, Muscular Dystrophy Neurological History: Reports: Migraines, Neuropathy, Peripheral, Seizure Psychiatric History: Reports: Addiction, Anxiety, Depression Endocrine/Metabolic History: Reports: Osteopenia Hematologic History: Reports: Other (See Below) Other Hematologic History: Factor V deficiency Immunologic History: Reports: None Oncologic (Cancer) History: Reports: None Dermatologic History: Reports: None - Past Surgical History Female Surgical History: Reports: Kidney stone extraction, Nephrectomy Social & Family History - Family History Family Medical History: No Pertinent Family History HEENT: Reports: None Cardiac: Reports: None Respiratory: Reports: Asthma GI: Reports: None : Reports: None OBGYN: Reports: None Musculoskeletal: Reports: None Neurological: Reports: None Psychiatric: Reports: Depression Endocrine/Metabolic: Reports: Diabetes, type II Hematologic: Reports: None Immunologic: Reports: None - Tobacco Use Tobacco Use Status *Q: Current Every Day Tobacco User - Caffeine Use Caffeine Use: Reports: Coffee, Energy Drinks, Soda ED ROS GENERAL - Review of Systems Review Of Systems: See Below Constitutional: Reports: Fever, Chills, Malaise, Weakness, Fatigue, Decreased Appetite HEENT: Reports: No Symptoms Respiratory: Reports: Shortness of Breath, Cough, Sputum Cardiovascular: Reports: Dyspnea on Exertion, Lightheadedness, Palpitations Endocrine: Reports: Fatigue GI/Abdominal: Reports: Diarrhea : Reports: No Symptoms Musculoskeletal: Reports: Muscle Pain, Muscle Stiffness Skin: Reports: No Symptoms Neurological: Reports: Dizziness, Weakness Psychiatric: Reports: No Symptoms Hematologic/Lymphatic: Reports: No Symptoms Immunologic: Reports: No Symptoms ED EXAM, GENERAL - Physical Exam Exam: See Below Free Text/Narrative:: Alert, oriented in respiratory distress with mild pallor to the facial features and very dusky distal upper extremities that are also cool to the touch. Saturation monitor is not picking up any reading flashing caution message lower than 85%. This is partially due to circulatory compromise and hypotension as well as for COPD and Covid desaturation. ar manager initially showed a heart rate in the 80s as I enter the room, during examination she flipped into a sinus tachycardia in the 110 130 range that at one point appeared to be in SVT in the 160s coming back down in the 130s. Her blood pressure at that time was 90s systolically with a very faint radial pulse. IV fluid was running at which time heart rate came down into the 80s again during assessment. HEENT shows glasses present no icterus no injection. Tacky oral membranes with no erythema. Neck is soft supple no lymphadenopathy no rigidity. She has some muscular tenderness but improved from yesterday. Thorax is diminished basis with no wheezes no crackles scattered rhonchi more predominant on the left than right. Cardiac is S1-S2 with varying rate from sinus jumping into the high sinus tach SVT range which has since resolved with fluid administration. Abdomen is rotund soft bowel sounds present no flank pain no abdominal pain. rectal is deferred. Lower extremities have cool pink skin with dorsalis pedis present bilateral capillary refill 3 seconds to the toes. Capillary refill 4 to 5 seconds in the upper extremities to the hands and fingers with a mottled appearance very cool to touch. Attempt for second IV with no venous access available, normal saline running at 999 with heart rate coming back into sinus rhythm with no tachycardia beats blood pressure comes up in the 120s over 70's, with oxygen saturation at 98% CO2 level had increased to 34 with most recent blood pressure 120/77, heart rate 85 and regular with occasional PAC. Reassessment at this time shows improvement in her circulatory with capillary refill in the upper extremities and now 3 seconds skin is slightly warming with the buddhist of Eduard hugger and warm blankets showing better overall circulatory status. Comparative lab work pending with chest x-ray showing mildly worsening of the left lower infiltrate. Course - Vital Signs Last Recorded V/S: Last Vital Signs Temp 97.4 F 05/04/20 14:09 Pulse 113 H 05/04/20 14:09 Resp 24 H 05/04/20 14:09 BP 94/69 05/04/20 14:09 Pulse Ox - Orders/Labs/Meds Orders: Active Orders 24 hr Category Date Time Status Peripheral IV Care [RC] . DIRECTED Care 05/04/20 14:23 Active Peripheral IV Care [RC] . DIRECTED Care 05/04/20 14:23 Active Lactated Ringers [Ringers, Lactated] 1,000 ml Med 05/04/20 16:45 Active IV ASDIRECTED Sodium Chloride 0.9% [Saline Flush] Med 05/04/20 14:22 Active 10 ml FLUSH Q8HR PRN Sodium Chloride 0.9% [Saline Flush] Med 05/04/20 14:23 Active 10 ml FLUSH Q8HR PRN Peripheral IV Insertion Adult [OM.PC] Routine Oth 05/04/20 14:23 Ordered Peripheral IV Insertion Adult [OM.PC] Routine Oth 05/04/20 14:23 Ordered Medication Orders Lactated Ringer's (Ringers, Lactated) 1,000 mls @ 150 mls/hr IV ASDIRECTED TIERRA Last Admin: 05/04/20 16:50 Dose: 150 mls/hr Documented by: Sodium Chloride (Saline Flush) 10 ml FLUSH Q8HR PRN PRN Reason: keep vein open Sodium Chloride (Saline Flush) 10 ml FLUSH Q8HR PRN PRN Reason: keep vein open Labs: Laboratory Tests 05/04/20 05/04/20 05/04/20 Range/Units 15:25 15:25 15:25 WBC (5.00-10.00) 10^3/uL RBC (3.80-5.50) 10^6/uL Hgb (12.0-16.0) g/dL Hct (37.0-47.0) % MCV (82.0-92.0) fL MCH (27.0-31.0) pg MCHC (32.0-36.0) g/dL RDW (11.5-14.5) % Plt Count (150-400) 10^3/uL MPV (7.4-10.4) fL Immature Gran % (Auto) (0.0-5.0) % Neut % (Auto) (50.0-70.0) % Lymph % (Auto) (20.0-40.0) % [place] % (Auto) (2.0-8.0) % Eos % (Auto) (1.0-3.0) % Baso % (Auto) (0.0-1.0) % Neut # (Auto) (2.50-7.00) 10^3/uL Lymph # (Auto) (1.00-4.00) 10^3/uL [place] # (Auto) (0.10-0.80) 10^3/uL Eos # (Auto) (0.10-0.30) 10^3/uL Baso # (Auto) (0.00-0.10) 10^3/uL Immature Gran # (Auto) (0.00-0.50) 10^3/uL D-Dimer, Quantitative 810 H (<400) ng/mL Sodium 133 L (136-145) mmol/L Potassium 3.5 (3.5-5.1) mmol/L Chloride 97 L (98-107) mmol/L Carbon Dioxide 22.1 (21.0-32.0) mmol/L Anion Gap 17.4 H (5-15) mmol/L BUN 9 (7-18) mg/dL Creatinine 0.71 (0.51-1.17) mg/dL Est Cr Clr Drug Dosing TNP Estimated GFR (MDRD) > 60 mL/min Glucose 93 (70-140) mg/dL Lactic Acid 2.5 H (0.4-2.0) mmol/L Calcium 8.4 L (8.7-10.3) mg/dL Total Bilirubin 0.3 (0.2-1.0) mg/dL AST 21 (15-37) U/L ALT 17 (14-63) U/L Alkaline Phosphatase 59 (46-116) U/L Total Protein 5.8 L (6.4-8.2) g/dL Albumin 2.61 L (3.40-5.00) g/dL 05/04/20 Range/Units 15:25 WBC 7.37 (5.00-10.00) 10^3/uL RBC 3.81 (3.80-5.50) 10^6/uL Hgb 13.3 D (12.0-16.0) g/dL Hct 38.7 (37.0-47.0) % MCV 101.6 H (82.0-92.0) fL MCH 34.9 H (27.0-31.0) pg MCHC 34.4 (32.0-36.0) g/dL RDW 12.7 (11.5-14.5) % Plt Count 119 L (150-400) 10^3/uL MPV 10.5 H (7.4-10.4) fL Immature Gran % (Auto) 0.1 (0.0-5.0) % Neut % (Auto) 71.2 H (50.0-70.0) % Lymph % (Auto) 23.3 (20.0-40.0) % [place] % (Auto) 5.2 (2.0-8.0) % Eos % (Auto) 0.1 L (1.0-3.0) % Baso % (Auto) 0.1 (0.0-1.0) % Neut # (Auto) 5.24 (2.50-7.00) 10^3/uL Lymph # (Auto) 1.72 (1.00-4.00) 10^3/uL [place] # (Auto) 0.38 (0.10-0.80) 10^3/uL Eos # (Auto) 0.01 L (0.10-0.30) 10^3/uL Baso # (Auto) 0.01 (0.00-0.10) 10^3/uL Immature Gran # (Auto) 0.01 (0.00-0.50) 10^3/uL D-Dimer, Quantitative (<400) ng/mL Sodium (136-145) mmol/L Potassium (3.5-5.1) mmol/L Chloride (98-107) mmol/L Carbon Dioxide (21.0-32.0) mmol/L Anion Gap (5-15) mmol/L BUN (7-18) mg/dL Creatinine (0.51-1.17) mg/dL Est Cr Clr Drug Dosing Estimated GFR (MDRD) mL/min Glucose (70-140) mg/dL Lactic Acid (0.4-2.0) mmol/L Calcium (8.7-10.3) mg/dL Total Bilirubin (0.2-1.0) mg/dL AST (15-37) U/L ALT (14-63) U/L Alkaline Phosphatase (46-116) U/L Total Protein (6.4-8.2) g/dL Albumin (3.40-5.00) g/dL Meds: Medications Generic Name Dose Route Start Last Admin Trade Name Freq PRN Reason Stop Dose Admin Lactated Ringer's 1,000 mls @ 150 mls/hr 05/04/20 16:45 05/04/20 16:50 Ringers, Lactated IV 150 mls/hr ASDIRECTED TIERRA Administration Sodium Chloride 10 ml 05/04/20 14:22 Saline Flush FLUSH Q8HR PRN keep vein open Sodium Chloride 10 ml 05/04/20 14:23 Saline Flush FLUSH Q8HR PRN keep vein open Discontinued Medications Generic Name Dose Route Start Last Admin Trade Name Freq PRN Reason Stop Dose Admin Dexamethasone 6 mg 05/04/20 16:31 05/04/20 16:50 Decadron IVPUSH 05/04/20 16:32 6 mg ONETIME ONE Administration Sodium Chloride 1,000 mls @ 999 mls/hr 05/04/20 14:22 05/04/20 14:31 Normal Saline IV 05/04/20 15:22 999 mls/hr .BOLUS ONE Administration Lactated Ringer's 1,000 mls @ 999 mls/hr 05/04/20 14:23 05/04/20 15:33 Ringers, Lactated IV 05/04/20 15:23 999 mls/hr .BOLUS ONE Administration - Radiology Interpretation Free Text/Narrative:: 1 view chest x-ray obtained today in comparison to yesterday shows mild increasing in the attributed viral infiltrate in the left lower quadrant with now some stranding starting to develop in the right lower quadrant. No evidence of hemopneumothorax, no evidence of cardiomegaly or evidence of CHF. Flat diaphragm appearing consistent with her emphysema/COPD. Over read is pending. - Re-Assessments/Exams Free Text/Narrative Re-Assessment/Exam: 05/04/20 15:44Second liter fluid started with second IV established. Heart rate now has been maintaining in the upper 70s lower 80s saturation 98% on nasal cannula at 2 L cannula with CO2 holding in the 28-29 range. Blood pressure most recently is 134/93 with a respiratory rate of 24. Free Text/Narrative Re-Assessment/Exam: 05/04/20 16:45 I discussed all laboratory findings, x-ray comparison as well as the discussion with the [facility] facility in [place] who has accepted Elizabeth to be transferred. Both her and her significant other are in agreement with this secondary of the status changes that occurred in the past 24 hours. Arrangements will be made with the [place] [facility] ambulance service to transport to the [facility] on [address] for direct admission 371 of the Covid unit. Departure - Departure Time of Disposition: 16:54 Disposition: DC/Tfer to [facility] 02 Condition: Fair Clinical Impression: Dehydration, Hypotension, Shortness of breath, Headache, Body aches, Diarrhea, Oculopharyngeal muscular dystrophy, Elevated d-dimer, Viral pneumonia, unspecified - Discharge Information *PRESCRIPTION DRUG MONITORING PROGRAM REVIEWED*: Not Applicable *COPY OF PRESCRIPTION DRUG MONITORING REPORT IN PATIENT CHHAYA: Not Applicable Referrals: Blanquita Santillan MD [Primary Care Provider] - Forms: ED Department Discharge Additional Instructions: Transfer arrangements made for direct admission to the [facility] room 371 for the [facility] unit in [place]. Dr. Moreland graciously accepting the transfer with [place] providing the transfer service. 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 Inpatient Consultation: Yes Patient Aware of Amendments fo Care Plan: Yes Patient's POA/Guardian Aware of Amendments to Care Plan: Yes - Problem List & Annotations (1) Lab test positive for detection of COVID-19 virus SNOMED Code(s): 7147395496296577 Code(s): U07.1 - COVID-19 Status: Acute Priority: High Current Visit: Yes (2) Shortness of breath SNOMED Code(s): 985500042 Code(s): R06.02 - SHORTNESS OF BREATH Status: Acute Priority: High Current Visit: Yes (3) Viral pneumonia, unspecified SNOMED Code(s): 12999618 Code(s): J12.9 - VIRAL PNEUMONIA, UNSPECIFIED Status: Acute Priority: High Current Visit: Yes Annotation/Comment:: Left lower base (4) Dehydration SNOMED Code(s): 12763779 Code(s): E86.0 - DEHYDRATION Status: Acute Priority: High Current Visit: Yes (5) Hypotension SNOMED Code(s): 48884760 Code(s): I95.9 - HYPOTENSION, UNSPECIFIED Status: Acute Priority: High Current Visit: Yes Qualifiers: Hypotension type: hypotension due to hypovolemia Qualified Code(s): I95.89 - Other hypotension; E86.1 - Hypovolemia (6) Body aches SNOMED Code(s): 62098429 Code(s): R52 - PAIN, UNSPECIFIED Status: Acute Priority: High Current Visit: Yes (7) Oculopharyngeal muscular dystrophy SNOMED Code(s): 77013481 Code(s): G71.09 - OTHER SPECIFIED MUSCULAR DYSTROPHIES Status: Chronic Priority: Medium Current Visit: Yes (8) Elevated d-dimer SNOMED Code(s): 749124704 Code(s): R79.89 - OTHER SPECIFIED ABNORMAL FINDINGS OF BLOOD CHEMISTRY Status: Acute Priority: High Current Visit: Yes - Problem List Review Problem List Initiated/Reviewed/Updated: Yes - My Orders Last 24 Hours: My Active Orders 05/04/20 14:22 Sodium Chloride 0.9% [Saline Flush] 10 ml FLUSH Q8HR PRN 05/04/20 14:23 Peripheral IV Care [RC] . DIRECTED Peripheral IV Care [RC] . DIRECTED Sodium Chloride 0.9% [Saline Flush] 10 ml FLUSH Q8HR PRN Peripheral IV Insertion Adult [OM.PC] Routine Peripheral IV Insertion Adult [OM.PC] Routine 05/04/20 16:45 Lactated Ringers [Ringers, Lactated] 1,000 ml IV ASDIRECTED - Assessment/Plan Last 24 Hours: My Active Orders 05/04/20 14:22 Sodium Chloride 0.9% [Saline Flush] 10 ml FLUSH Q8HR PRN 05/04/20 14:23 Peripheral IV Care [RC] . DIRECTED Peripheral IV Care [RC] . DIRECTED Sodium Chloride 0.9% [Saline Flush] 10 ml FLUSH Q8HR PRN Peripheral IV Insertion Adult [OM.PC] Routine Peripheral IV Insertion Adult [OM.PC] Routine 05/04/20 16:45 Lactated Ringers [Ringers, Lactated] 1,000 ml IV ASDIRECTED Plan: Transfer arrangements made for [facility] [place] Dr. Moreland graciously accepting the transfer with [facility] providing the transfer service.
[2020-05-04] MEDS ORDERED: Sodium Chloride 0.9% 10 ML Syringe FLUSH PRN ×2 (14:22→14:23)
[2020-05-04] MEDS: Sodium Chloride 0.9% 1,000 ML IV ONE (14:31)
--- NOTE | 2020-05-04 15:05 | CR ---
[id number] RAD/RAD Chest PA or AP 1V EXAM: RAD Chest PA or AP 1V INDICATION: COVID + IN NEG PRESSURE ROOM. COMPARISON: Yesterday. DISCUSSION: Cardiomediastinal silhouette is normal in size and contour. Parenchymal opacity in the left lung base. Findings are similar to yesterday. No new opacities or other significant change. IMPRESSION: As above. Blas Fisher MD 05/04/20 0454 Thank you for allowing us to participate in the care of your patient.
[2020-05-04] MEDS: Lactated Ringers 1,000 ML IV ONE (15:33)
[2020-05-04 15:53] LABS: ANION GAP 17.4 mmol/L (5-15); CHLORIDE,CL 97 mmol/L (98-107); SODIUM,NA 133 mmol/L (136-145)
[2020-05-04] MEDS: Lactated Ringers 1,000 ML IV SCH (16:50)
[2020-05-04] MEDS: Dexamethasone 10 MG/ML SDV IVPUSH ONE (16:50)
== END 2020-05-04 17:42 ==
LOC: KA.ED 13:55
DX: J12.9 Viral pneumonia, unspecified (principal); E86.0 Dehydration; I95.9 Hypotension, unspecified; G71.09 Other specified muscular dystrophies; R79.1 Abnormal coagulation profile; R19.7 Diarrhea, unspecified; I10 Essential (primary) hypertension; J44.9 Chronic obstructive pulmonary disease, unspecified; K21.9 Gastro-esophageal reflux disease without esophagitis; Z72.0 Tobacco use; Z91.030 Bee allergy status; Z88.1 Allergy status to other antibiotic agents; Z88.8 Allergy status to other drugs, medicaments and biological substances; Z79.899 Other long term (current) drug therapy
CPT/HCPCS: 36415; 71045; 80053; 83605; 85025; 85379; 96374; 99285-25; J1100; J7030; J7120

== ENCOUNTER 2021-06-03 09:25 | Day surgery (SDC) | payer MEDICARE, MEDICAID ==
[2021-06-03] MEDS ORDERED: Propofol 200 MG/20 ML SDV IV ONE (09:26)
[2021-06-03] MEDS ORDERED: Lactated Ringers 1,000 ML IV SCH (09:30)
[2021-06-03] MEDS ORDERED: Sodium Chloride 0.9% 10 ML Syringe FLUSH PRN (09:30)
[2021-06-03] MEDS ORDERED: Midazolam 1 MG/ML 2 ML SDV ONE (09:50)
[2021-06-03] MEDS ORDERED: Propofol 200 MG/20 ML SDV ONE ×2 (09:50→11:16)
== END 2021-06-03 13:35 | disposition home or self-care (01) ==
LOC: KA.SDS 09:25
PROVIDERS: ATTEND Family Medicine
DX: D12.0 Benign neoplasm of cecum (principal); D12.2 Benign neoplasm of ascending colon; D12.3 Benign neoplasm of transverse colon; D12.5 Benign neoplasm of sigmoid colon; K64.0 First degree hemorrhoids; K57.30 Diverticulosis of large intestine without perforation or abscess without bleeding; J43.2 Centrilobular emphysema; I10 Essential (primary) hypertension; K21.9 Gastro-esophageal reflux disease without esophagitis; E78.2 Mixed hyperlipidemia; G43.009 Migraine without aura, not intractable, without status migrainosus; G62.9 Polyneuropathy, unspecified; E53.8 Deficiency of other specified B group vitamins
CPT/HCPCS: 00812; J2250; J2704; J7120

== ENCOUNTER 2022-07-22 09:47 | Day surgery (SDC) | payer MEDICARE, MEDICAID ==
[2022-07-22] MEDS ORDERED: Lactated Ringers 1,000 ML IV SCH (10:00)
[2022-07-22] MEDS ORDERED: Sodium Chloride 0.9% 10 ML Syringe FLUSH PRN (10:00)
[2022-07-22] MEDS ORDERED: Propofol 200 MG/20 ML SDV ONE (12:09)
[2022-07-22] MEDS ORDERED: Midazolam 1 MG/ML 2 ML SDV ONE (12:09)
== END 2022-07-22 14:08 | disposition home or self-care (01) ==
LOC: KA.SDS 09:47
PROVIDERS: ATTEND Family Medicine
DX: D12.3 Benign neoplasm of transverse colon (principal); K64.1 Second degree hemorrhoids; K57.30 Diverticulosis of large intestine without perforation or abscess without bleeding; J43.2 Centrilobular emphysema; S62.666D Nondisplaced fracture of distal phalanx of right little finger, subsequent encounter for fracture with routine healing; D68.51 Activated protein C resistance; D51.9 Vitamin B12 deficiency anemia, unspecified; G62.9 Polyneuropathy, unspecified; R79.0 Abnormal level of blood mineral; R74.01 Elevation of levels of liver transaminase levels; R91.1 Solitary pulmonary nodule; I10 Essential (primary) hypertension; I25.10 Atherosclerotic heart disease of native coronary artery without angina pectoris; K76.0 Fatty (change of) liver, not elsewhere classified; K21.9 Gastro-esophageal reflux disease without esophagitis; R13.19 Other dysphagia; N87.9 Dysplasia of cervix uteri, unspecified; D75.89 Other specified diseases of blood and blood-forming organs; E78.00 Pure hypercholesterolemia, unspecified; E66.3 Overweight; Z68.25 Body mass index [BMI] 25.0-25.9, adult; G43.909 Migraine, unspecified, not intractable, without status migrainosus; G71.09 Other specified muscular dystrophies; M54.50 Low back pain, unspecified; G89.29 Other chronic pain; J31.0 Chronic rhinitis; Z79.82 Long term (current) use of aspirin; Z79.899 Other long term (current) drug therapy; Z86.010 Personal history of colon polyps
CPT/HCPCS: 00812; J2250; J2704; J7120